=== PATIENT | male | born 1950 | race African-American/Black ===

== ENCOUNTER 2016-10-31 14:46 | Inpatient (IN) | payer BC ==
--- NOTE | ~2016-10-31 | EKG ---
PATIENT: APRIL GILBERT UNIT #: [id number] Ventricular Rate: 84 BPM Atrial Rate: 84 BPM P-R Interval: 150 ms QRS Duration: 74 ms Q-T Interval: 366 ms QTC Calculation(Bezet): 432 ms P [place]: 85 degrees Calculated R [place]: 43 degrees Calculated T [place]: 78 degrees Diagnosis Line: Normal sinus rhythm Diagnosis Line: Normal ECG Diagnosis Line: When compared with ECG of 28-DEC-2015 23:22, Diagnosis Line: Criteria for Septal infarct are no longer Present Diagnosis Line: Confirmed by SARAHI MOORE MD ([id number]) on 11/05/2016 Diagnosis Line: 10:25:04 PM INTERPRETING MD: OSCAR WONG
--- NOTE | ~2016-10-31 | CR72 ---
[facility] A Service of [facility] & [facility] RADIOLOGY TEXT RESULTS PATIENT: APRIL GILBERT LOCATION: [facility] 571-01 : 51 UNIT #: [id number] AGE: [address]: Jorge Douglas MD SEX: M ORDER DR: [id number] [facility] [address] [facility]. [place], [place] [address] [id number] I MR#: [id number] Acc #: [id number] NAME: APRIL GILBERT : 1950 SEX: M STUDY DATE/TIME: 11/03/2016 5:03 UNIT: [facility] ROOM: [employer] STUDY DESCRIPTION: CR Chest Single View Portable Attending Physician: Stephany Douglas M.D. Ordering Physician: Stephany Douglas M.D. Primary Care Physician: Rachelle Reddy R.N. MEDICAL IMAGING REPORT This report is preliminary unless electronic signature is present EXAM Portable chest, 11/03/2016 HISTORY Shortness of air and chest pain for 3 days. COMPARISON Chest, 10/31/2016 FINDINGS Frontal chest demonstrates clear lungs. No pleural effusion or pneumothorax. Emphysema. Heart size and mediastinum normal. Pulmonary vasculature unremarkable. IMPRESSION Emphysema. No other acute chest findings. Dictated by... Christian Arcos M.D. THIS IS AN ELECTRONICALLY VERIFIED REPORT Christian Arcos M.D. at 11/04/2016 4:40 PM Ilsa TD: 11/03/2016 17:15 JOB #: [id number] MEDICAL IMAGING REPORT Page 1 of 1 COPY
--- NOTE | ~2016-10-31 | DS ---
Unit #: [id number] #: [id number] Patient: APRIL GILBERT [id number] [address] [address] [id number] I MR#: [id number] NAME: APRIL GILBERT. ROOM: 571 Age: 66 Sex: M Admission Date: 10/31/2016 : 1950 Discharge Date: 11/11/2016 Attending Physician: Stephany Douglas M.D. Primary Care Physician: Rachelle Reddy DISCHARGE SUMMARY DISCHARGE DIAGNOSES 1. Chronic obstructive pulmonary disease exacerbation. 2. Shortness of breath. 3. Atrial fibrillation, on chronic anticoagulation. 4. Acute on chronic respiratory failure. 65-year-old gentleman well known to our practice admitted last year with acute respiratory failure, COPD exacerbation, presented with two days of worsening shortness of breath. The patient denied fevers, chills, nausea, vomiting, nausea, vomiting, diarrhea, sweating, chest pain, discomfort. Patient had nonproductive cough, no hemoptysis. He is having significant anxiety, worsening shortness of breath, history of very similar symptoms and having some chest pain. Admitted to the hospital for what appeared to be COPD exacerbation. The patient had a workup so sputum cultures are negative. Blood cultures are negative. The patient became very lethargic after being given Xanax for anxiety. Therefore, he is being discharged on home oxygen as well as a Trilogy which is a noninvasive ventilator designed to help him get adequate oxygen during sleep. DISCHARGE MEDICATIONS Include: 1. Warfarin 5 mg daily. 2. Amlodipine 5 mg daily. 3. Metoprolol 12.5 mg daily. 4. Lasix 20 mg daily. 5. Iron sulfate 325 mg t.i.d. 6. Multivitamins, one tablet daily. 7. Aspirin 81 mg daily. 8. Potassium chloride 10 mEq daily. 9. Folic acid 1 mg daily. 10. B12 50 mg daily. 11. Warfarin 5 mg Friday, Friday, Friday, 2.5 mg Friday, , Friday, Friday. 12. Prednisone 40 mg x1 day, 30 mg x1 day, 20 mg x2 days, and 10 mg x2 days. 13. Spiriva Respimat, one puff twice a day. 14. Cordarone 100 mg daily. 15. Flomax 0.4 mg daily. 16. Symbicort two puffs twice a day. 17. Ventolin puffer, two puffs every four hours as needed for shortness of breath. DIET The patient should continue a low salt diet. Unit #: [id number] #: [id number] Patient: APRIL GILBERT ACTIVITY Patient should wear BiPAP at night and ambulate as much as tolerated. Dictated by... Juanita Jones TD: 11/12/2016 11:27 JOB #: [id number] DISCHARGE SUMMARY Page 1 of 1 X Jorge Douglas MD X DISCHARGE SUMMARY
--- NOTE | ~2016-10-31 | CR71 ---
[facility]. [facility] A Service of [facility] & [facility] RADIOLOGY TEXT RESULTS PATIENT: APRIL GILBERT LOCATION: [facility] 571-01 : 51 UNIT #: [id number] AGE: [address]: Jorge Douglas MD SEX: M ORDER DR: [id number] [facility] [address] [place], [place] [address] [id number] I MR#: [id number] Acc #: [id number] NAME: APRIL GILBERT : 1950 SEX: M STUDY DATE/TIME: 11/06/2016 4:48 UNIT: [facility] ROOM: [facility] STUDY DESCRIPTION: CR Chest Single View Attending Physician: Jorge Douglas Ordering Physician: Jroge Douglas Primary Care Physician: Rachelle Reddy MEDICAL IMAGING REPORT This report is preliminary unless electronic signature is present EXAM Portable chest INDICATIONS Shortness of air today. PROCEDURE Frontal view chest. COMPARISON 11/04/2016 FINDINGS Heart size unchanged. No dense consolidation. No pleural fluid or pneumothorax. IMPRESSION No change. No new dense consolidation. Dictated by... Oliver Bautista M.D. THIS IS AN ELECTRONICALLY VERIFIED REPORT Oliver Bautista M.D. at 11/06/2016 10:24 PM STEWART/erin TD: 11/06/2016 06:25 JOB #: [id number] MEDICAL IMAGING REPORT Page 1 of 1 COPY
--- NOTE | ~2016-10-31 | CR72 ---
[facility]. [facility] A Service of [facility] & [facility] RADIOLOGY TEXT RESULTS PATIENT: APRIL GILBERT LOCATION: [facility] 571-01 : 51 UNIT #: [id number] AGE: [address]: Jorge Douglas MD SEX: M ORDER DR: [id number] [facility] [address] [place], [place] [address] [id number] I MR#: [id number] Acc #: [id number] NAME: APRIL GILBERT : 1950 SEX: M STUDY DATE/TIME: 11/04/2016 4:44 UNIT: [facility] ROOM: [facility] STUDY DESCRIPTION: CR Chest Single View Portable Attending Physician: Jorge Douglas Ordering Physician: Jorge Douglas Primary Care Physician: Rachelle Reddy MEDICAL IMAGING REPORT This report is preliminary unless electronic signature is present EXAM Portable chest INDICATIONS Chest pain, shortness of air today. PROCEDURE frontal view chest COMPARISON 11/03/2016 FINDINGS Heart size stable. No dense consolidation. No pleural fluid. No pneumothorax. IMPRESSION Stable chest. Dictated by... Oliver Bautista M.D. THIS IS AN ELECTRONICALLY VERIFIED REPORT Oliver Bautista M.D. at 11/04/2016 9:56 PM STEWART/erin TD: 11/04/2016 08:49 JOB #: [id number] MEDICAL IMAGING REPORT Page 1 of 1 COPY
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
--- NOTE | ~2016-10-31 | CR63 ---
[facility] A Service of [facility] RADIOLOGY TEXT RESULTS PATIENT: APRIL GILBERT LOCATION: [facility] : 51 UNIT #: [id number] AGE: [address]: Alexis Rivera MD SEX: M ORDER DR: [id number] [facility] [address] [facility] [address] [place], [place] [address] [id number] MR#: [id number] Acc #: [id number] NAME: APRIL GILBERT : 1950 SEX: M STUDY DATE/TIME: 10/31/2016 14:07 UNIT: [facility] ROOM: STUDY DESCRIPTION: CR Chest 2 View Attending Physician: Alexis Rivera M.D. Ordering Physician: Alexis Rivera M.D. Primary Care Physician: Rachelle Reddy MEDICAL IMAGING REPORT This report is preliminary unless electronic signature is present EXAM Chest x-ray 10/31 INDICATIONS Shortness of air today. History of prostate cancer and COPD. History of hypertension. TECHNIQUE/COMPARISON PA and lateral views of the chest are compared with 12/29/2015. FINDINGS Cardiac mediastinal contours are normal. The lungs remain emphysematous but clear. No pneumothorax. IMPRESSION Emphysema. No active disease. Dictated by... Vaughn Funes Jr., M.D. THIS IS AN ELECTRONICALLY VERIFIED REPORT Vaughn Funes Jr., M.D. at 10/31/2016 4:31 PM RLK/fermin TD: 10/31/2016 15:36 JOB #: [id number] MEDICAL IMAGING REPORT Page 1 of 1 COPY
[2016-10-31 13:40] LABS: ARTERIAL BLD GAS O2 SATURATION 74.3 % (90.0-100.0); ARTERIAL BLOOD GAS CARBOXY HB 4.6 %sat (0.0-9.0); ARTERIAL BLOOD GAS HCO3 42.3 mmol/L; ARTERIAL BLOOD GAS MET HB 0.7 %sat (0.0-2.0); ARTERIAL BLOOD GAS pH 7.367 (7.350-7.450)
[2016-10-31 13:44] LABS: ARTERIAL BLOOD GAS ALLEN TEST NORMAL; ARTERIAL BLOOD GAS PCO2 73.8 mmHg (35.0-45.0); ARTERIAL BLOOD GAS PO2 41.4 mmHg (80.0-100); ARTERIAL DRAW? YES
[2016-10-31 13:45] LABS: ARTERIAL BLOOD GAS ART SITE RIGHT RADIAL; ARTERIAL BLOOD GAS DELIVERY NASAL CANNULA
[2016-10-31 13:51] LABS: POC - CKMB 8.2 ng/mL (0.0-7.9); POC - TROPONIN <0.05 ng/mL (<=0.05)
[2016-10-31 13:54] LABS: BASOPHIL% 0.5 % (0-2.5); EOSINOPHIL% 0.3 % (0.0-7.0); HEMATOCRIT 40.4 % (38.0-50.0); HEMOGLOBIN 13.5 gm/dL (13.0-16.0); LYMPHOCYTE# 0.7 X10e3 (1.0-3.5); LYMPHOCYTE% 7.1 % (17.0-45.0); MEAN CELL VOLUME 89.4 FL (83-96); MEAN CORPUSCULAR HEMOGLOBIN 29.8 PG (28-34); MEAN CORPUSCULAR HGB CONC 33.4 g/dL (30-36); MEAN PLATELET VOLUME 9.4 FL (6.5-11.5); MONOCYTE# 1.6 X10e3 (0-1.0); MONOCYTE% 17.8 % (3.0-12.0); NEUTROPHIL# 6.8 X10e3 (1.5-7.1); NEUTROPHIL% 74.3 % (40-75); PLATELET COUNT 221 X10e3 (140-420); RED BLOOD COUNT 4.52 X10e (3.90-5.60); RED CELL DISTRIBUTION WIDTH 13.9 % (11.0-15.5); WHITE BLOOD COUNT 9.2 X10e3 (4.0-10.5)
[2016-10-31 13:59] LABS: DIFF IND NO
[2016-10-31 14:16] LABS: ALBUMIN SERUM 3.9 g/dL (3.5-5.0); BILIRUBIN,TOTAL 0.8 mg/dL (0.2-2.0); CREATININE SERUM 0.7 mg/dL (0.6-1.4); GLOM FILT RATE Estimated 115.6 mL/min (>60); POTASSIUM 3.9 mmol/L (3.5-5.1); PROTEIN TOTAL SERUM 7.5 g/dL (6.0-8.3)
[~2016-10-31 14:46] MED LIST: ALBUTEROL17 GM INH; ALBUTEROL2.5 MG/0.5 IH; ALBUTEROL2.5 MG/3 M NEB; AMIODARONE PO; AMLODIPINE BESYL5 MG PO; ASPIRIN81 M1 PO; ASPIRIN81 M2 PO; CATAPRES0.1 MG PO; CENTRUM SILVER PO; CHEWABLE ASPIRI81 MG PO; CORDARONE200 M1 PO; COUMADIN2.5 MG PO; COUMADIN5 MG PO; DOXYCYCLINE HY100 M1 PO; DOXYCYCLINE HY100 M3 PO; DULERA 100 MCG/13 GM INH; EXFORGE HCT 101 EAC2 PO; FERROUS GL325 ( 37.5 PO; FLOMAX0.4 M1 PO; FOLIC ACID1 MG PO; FUROSEMIDE40 MG PO; KCL PO; MEDROL DOSEPAK4 MG PO; METOLAZONE5 MG PO; METOPROLOL SUCC25 MG PO; MUCINEX DM TABL1 BOX; NORVASC PO; NYSTATIN5 ML PO; OXYGEN; POTASSIUM CHLO10 MEQ PO; PREDNISONE PO; SPIRIVA RESPIMAT4 G1 INH; SPIRIVA18 MCG INH; SYMBICORT INH; VIT B-12 PO; ZITHROMAX; ZOCOR20 MG PO; [UNRECOGNIZED DRUG - OTHER] PO
[2016-10-31 15:07] LABS: ARTERIAL BLD GAS O2 SATURATION 94.7 % (90.0-100.0); ARTERIAL BLOOD GAS CARBOXY HB 3.5 %sat (0.0-9.0); ARTERIAL BLOOD GAS HCO3 40.4 mmol/L; ARTERIAL BLOOD GAS MET HB 1.4 %sat (0.0-2.0)
[2016-10-31 15:09] LABS: ARTERIAL BLOOD GAS PCO2 78.5 mmHg (35.0-45.0)
[2016-10-31 15:10] LABS: ARTERIAL BLOOD GAS ALLEN TEST NORMAL; ARTERIAL BLOOD GAS ART SITE LEFT RADIAL; ARTERIAL BLOOD GAS DELIVERY BIPAP; ARTERIAL DRAW? YES
[2016-10-31 18:12] LABS: INR 2.6; PROTHROMBIN TIME (PATIENT) 28.1 SECONDS (9.6-11.5)
[2016-11-01 03:56] LABS: ARTERIAL BLD GAS O2 SATURATION 97.3 % (90.0-100.0); ARTERIAL BLOOD GAS CARBOXY HB 0.5 %sat (0.0-9.0); ARTERIAL BLOOD GAS HCO3 39.5 mmol/L; ARTERIAL BLOOD GAS MET HB 0.9 %sat (0.0-2.0); ARTERIAL BLOOD GAS pH 7.311 (7.350-7.450)
[2016-11-01 04:08] LABS: ARTERIAL BLOOD GAS ALLEN TEST Y; ARTERIAL BLOOD GAS ART SITE RIGHT RADIAL; ARTERIAL BLOOD GAS DELIVERY NASAL CANNULA; ARTERIAL BLOOD GAS PCO2 78.4 mmHg (35.0-45.0); ARTERIAL DRAW? YES
[2016-11-01 06:19] LABS: INR 2.7
[2016-11-02 11:04] LABS: HEMATOCRIT 38.7 % (38.0-50.0); HEMOGLOBIN 12.4 gm/dL (13.0-16.0); MEAN CELL VOLUME 91.1 FL (83-96); MEAN CORPUSCULAR HEMOGLOBIN 29.2 PG (28-34); MEAN PLATELET VOLUME 9.7 FL (6.5-11.5); RED BLOOD COUNT 4.25 X10e (3.90-5.60)
[2016-11-02 11:30] LABS: BUN/CREATININE RATIO 16.25; CALCIUM SERUM 9.2 mg/dL (8.4-10.2); CREATININE SERUM 0.8 mg/dL (0.6-1.4); GLOM FILT RATE Estimated 109.5 mL/min (>60); MAGNESIUM 1.9 mg/dL (1.6-3.0); PHOSPHOROUS 2.9 mg/dL (2.5-4.6); POTASSIUM 5.1 mmol/L (3.5-5.1)
[2016-11-03 07:59] LABS: HEMATOCRIT 39.8 % (38.0-50.0); HEMOGLOBIN 12.5 gm/dL (13.0-16.0); MEAN CELL VOLUME 91.7 FL (83-96); MEAN CORPUSCULAR HEMOGLOBIN 28.8 PG (28-34); MEAN CORPUSCULAR HGB CONC 31.4 g/dL (30-36); MEAN PLATELET VOLUME 9.4 FL (6.5-11.5); RED BLOOD COUNT 4.34 X10e (3.90-5.60); RED CELL DISTRIBUTION WIDTH 13.9 % (11.0-15.5); WHITE BLOOD COUNT 16.7 X10e3 (4.0-10.5)
[2016-11-03 08:11] LABS: INR 2.2; PROTHROMBIN TIME (PATIENT) 24.1 SECONDS (9.6-11.5)
[2016-11-03 08:21] LABS: BUN/CREATININE RATIO 23.75; CALCIUM SERUM 9.3 mg/dL (8.4-10.2); CREATININE SERUM 0.8 mg/dL (0.6-1.4); GLOM FILT RATE Estimated 109.5 mL/min (>60)
[2016-11-03 08:25] LABS: POTASSIUM 5.8 mmol/L (3.5-5.1)
[2016-11-03 08:59] LABS: ARTERIAL BLD GAS O2 SATURATION 98.1 % (90.0-100.0); ARTERIAL BLOOD GAS HCO3 47.6 mmol/L; ARTERIAL BLOOD GAS pH 7.303 (7.350-7.450)
[2016-11-03 09:03] LABS: ARTERIAL BLOOD GAS PCO2 96.1 mmHg (35.0-45.0)
[2016-11-03 09:04] LABS: ARTERIAL BLOOD GAS ART SITE RIGHT RADIAL; ARTERIAL BLOOD GAS DELIVERY NASAL CANNULA; ARTERIAL DRAW? YES
[2016-11-03 13:14] LABS: ARTERIAL BLD GAS O2 SATURATION 94.6 % (90.0-100.0); ARTERIAL BLOOD GAS CARBOXY HB 0.5 %sat (0.0-9.0); ARTERIAL BLOOD GAS HCO3 46.8 mmol/L
[2016-11-03 13:17] LABS: ARTERIAL BLOOD GAS ALLEN TEST NORMAL; ARTERIAL BLOOD GAS ART SITE RIGHT RADIAL; ARTERIAL BLOOD GAS DELIVERY BIPAP; ARTERIAL BLOOD GAS PCO2 82.9 mmHg (35.0-45.0); ARTERIAL BLOOD GAS PO2 75.3 mmHg (80.0-100); ARTERIAL DRAW? YES
[2016-11-03 13:18] LABS: ARTERIAL BLOOD GAS VENT MODE AVAPS 500
[2016-11-04 04:04] LABS: ARTERIAL BLD GAS O2 SATURATION 91.8 % (90.0-100.0); ARTERIAL BLOOD GAS CARBOXY HB 0.6 %sat (0.0-9.0); ARTERIAL BLOOD GAS HCO3 51.2 mmol/L; ARTERIAL BLOOD GAS MET HB 1.1 %sat (0.0-2.0); ARTERIAL BLOOD GAS pH 7.522 (7.350-7.450)
[2016-11-04 04:37] LABS: ARTERIAL BLOOD GAS ALLEN TEST NORMAL; ARTERIAL BLOOD GAS ART SITE RIGHT RADIAL; ARTERIAL BLOOD GAS PCO2 62.5 mmHg (35.0-45.0); ARTERIAL BLOOD GAS PO2 64.2 mmHg (80.0-100); ARTERIAL DRAW? YES
[2016-11-04 04:38] LABS: ARTERIAL BLOOD GAS DELIVERY BIPAP; ARTERIAL BLOOD GAS VENT MODE AVAPS
[2016-11-04 05:29] LABS: HEMATOCRIT 38.7 % (38.0-50.0); HEMOGLOBIN 12.3 gm/dL (13.0-16.0); MEAN CELL VOLUME 90.5 FL (83-96); MEAN CORPUSCULAR HEMOGLOBIN 28.8 PG (28-34); MEAN CORPUSCULAR HGB CONC 31.8 g/dL (30-36); MEAN PLATELET VOLUME 9.2 FL (6.5-11.5); RED BLOOD COUNT 4.28 X10e (3.90-5.60); RED CELL DISTRIBUTION WIDTH 14.2 % (11.0-15.5); WHITE BLOOD COUNT 14.1 X10e3 (4.0-10.5)
[2016-11-04 05:41] LABS: INR 2.5; PROTHROMBIN TIME (PATIENT) 27.4 SECONDS (9.6-11.5)
[2016-11-04 06:44] LABS: ALBUMIN SERUM 3.2 g/dL (3.5-5.0); BILIRUBIN,TOTAL 0.5 mg/dL (0.2-2.0); BUN/CREATININE RATIO 23.75; CALCIUM SERUM 8.7 mg/dL (8.4-10.2); CREATININE SERUM 0.8 mg/dL (0.6-1.4); GLOM FILT RATE Estimated 109.5 mL/min (>60); POTASSIUM 4.5 mmol/L (3.5-5.1)
[2016-11-05 03:50] LABS: ARTERIAL BLD GAS O2 SATURATION 95.6 % (90.0-100.0); ARTERIAL BLOOD GAS CARBOXY HB 0.2 %sat (0.0-9.0); ARTERIAL BLOOD GAS HCO3 51.7 mmol/L; ARTERIAL BLOOD GAS MET HB 0.8 %sat (0.0-2.0); ARTERIAL BLOOD GAS PO2 81.7 mmHg (80.0-100); ARTERIAL BLOOD GAS pH 7.471 (7.350-7.450)
[2016-11-05 03:55] LABS: ARTERIAL BLOOD GAS ALLEN TEST NORMAL; ARTERIAL BLOOD GAS ART SITE RIGHT RADIAL; ARTERIAL BLOOD GAS DELIVERY BIPAP; ARTERIAL BLOOD GAS PCO2 70.9 mmHg (35.0-45.0); ARTERIAL BLOOD GAS VENT MODE AVAPS; ARTERIAL DRAW? YES
[2016-11-05 06:59] LABS: INR 2.6; PROTHROMBIN TIME (PATIENT) 28.4 SECONDS (9.6-11.5)
[2016-11-05 07:32] LABS: BUN/CREATININE RATIO 28.33; CALCIUM SERUM 8.4 mg/dL (8.4-10.2); CREATININE SERUM 0.6 mg/dL (0.6-1.4); GLOM FILT RATE Estimated 123.2 mL/min (>60); MAGNESIUM 2.3 mg/dL (1.6-3.0); PHOSPHOROUS 3.2 mg/dL (2.5-4.6); POTASSIUM 4.2 mmol/L (3.5-5.1)
[2016-11-05 08:11] LABS: ARTERIAL BLD GAS O2 SATURATION 96.8 % (90.0-100.0); ARTERIAL BLOOD GAS CARBOXY HB 0.1 %sat (0.0-9.0); ARTERIAL BLOOD GAS HCO3 50.1 mmol/L; ARTERIAL BLOOD GAS MET HB 0.9 %sat (0.0-2.0); ARTERIAL BLOOD GAS pH 7.411 (7.350-7.450)
[2016-11-05 08:13] LABS: ARTERIAL BLOOD GAS PCO2 78.8 mmHg (35.0-45.0); ARTERIAL DRAW? YES
[2016-11-05 08:14] LABS: ARTERIAL BLOOD GAS ALLEN TEST NORMAL; ARTERIAL BLOOD GAS ART SITE RIGHT RADIAL; ARTERIAL BLOOD GAS DELIVERY NASAL CANNULA
[2016-11-06 07:01] LABS: HEMATOCRIT 41.7 % (38.0-50.0); HEMOGLOBIN 13.4 gm/dL (13.0-16.0); MEAN CELL VOLUME 90.4 FL (83-96); MEAN CORPUSCULAR HGB CONC 32.1 g/dL (30-36); MEAN PLATELET VOLUME 8.9 FL (6.5-11.5); RED BLOOD COUNT 4.61 X10e (3.90-5.60); RED CELL DISTRIBUTION WIDTH 13.5 % (11.0-15.5); WHITE BLOOD COUNT 17.7 X10e3 (4.0-10.5)
[2016-11-06 07:09] LABS: BUN/CREATININE RATIO 22.5; CALCIUM SERUM 8.8 mg/dL (8.4-10.2); CREATININE SERUM 0.8 mg/dL (0.6-1.4); GLOM FILT RATE Estimated 109.5 mL/min (>60); POTASSIUM 4.4 mmol/L (3.5-5.1)
[2016-11-08 08:04] LABS: HEMATOCRIT 44.4 % (38.0-50.0); HEMOGLOBIN 13.9 gm/dL (13.0-16.0); MEAN CELL VOLUME 91.7 FL (83-96); MEAN CORPUSCULAR HEMOGLOBIN 28.6 PG (28-34); MEAN CORPUSCULAR HGB CONC 31.2 g/dL (30-36); MEAN PLATELET VOLUME 9.2 FL (6.5-11.5); RED BLOOD COUNT 4.84 X10e (3.90-5.60); RED CELL DISTRIBUTION WIDTH 13.7 % (11.0-15.5); WHITE BLOOD COUNT 22.1 X10e3 (4.0-10.5)
[2016-11-08 08:07] LABS: INR 3.8; PROTHROMBIN TIME (PATIENT) 41.5 SECONDS (9.6-11.5)
[2016-11-08 08:33] LABS: BUN/CREATININE RATIO 22.5; CALCIUM SERUM 8.4 mg/dL (8.4-10.2); CREATININE SERUM 0.8 mg/dL (0.6-1.4); GLOM FILT RATE Estimated 108.7 mL/min (>60); MAGNESIUM 2.3 mg/dL (1.6-3.0); PHOSPHOROUS 3.3 mg/dL (2.5-4.6); POTASSIUM 4.9 mmol/L (3.5-5.1)
[2016-11-09 06:43] LABS: INR 2.3; PROTHROMBIN TIME (PATIENT) 25.1 SECONDS (9.6-11.5)
[2016-11-10 05:51] LABS: INR 1.4; PROTHROMBIN TIME (PATIENT) 14.7 SECONDS (9.6-11.5)
[2016-11-11 05:32] LABS: INR 1.1; PROTHROMBIN TIME (PATIENT) 12.1 SECONDS (9.6-11.5)
[2016-11-11] MEDS ORDERED: JANTOVEN7.5 MG PO (17:53)
[2016-11-11] MEDS ORDERED: PREDNISONE PO (17:54)
[2016-11-11] MEDS ORDERED: ALBUTEROL2.5 MG/3 M NEB (18:13)
== END 2016-11-11 21:42 | disposition home or self-care (01) | DRG 189 ==
LOC: CED 14:46 → CEDOF 16:55 → C5C 22:26
PROVIDERS: Emergency Medicine; Internal Medicine Pulmonary Disease
PROC: 5A09357 Assistance with Respiratory Ventilation, Less than 24 Consecutive Hours, Continuous Positive Airway Pressure (ICD-10-PCS; principal; 2016-11-04)
DX: J96.22 Acute and chronic respiratory failure with hypercapnia (principal); J44.1 Chronic obstructive pulmonary disease with (acute) exacerbation; Z99.81 Dependence on supplemental oxygen; J96.21 Acute and chronic respiratory failure with hypoxia; I48.91 Unspecified atrial fibrillation; F41.9 Anxiety disorder, unspecified; R53.83 Other fatigue; I10 Essential (primary) hypertension; T42.4X5A Adverse effect of benzodiazepines, initial encounter; Y92.230 Patient room in hospital as the place of occurrence of the external cause; Z79.01 Long term (current) use of anticoagulants; Z79.51 Long term (current) use of inhaled steroids; Z79.82 Long term (current) use of aspirin; Z79.899 Other long term (current) drug therapy; Z87.891 Personal history of nicotine dependence
CPT/HCPCS: 36600; 71010; 71020; 80048; 80053; 82553; 82803; 83735; 84100; 84132; 84484; 85025; 85027; 85610; 87040; 87070; 87205; 87633; 93005; 94640; 94660; 94664; 94760; 94761; 94762; 96374; 97162; 99291; J1650; J1940; J2060; J2920; J2930

== ENCOUNTER 2017-01-28 20:33 | Inpatient (IN) | payer MEDICARE ==
[~2017-01-28] VITALS: Ht 167.6 cm; Wt 77.5 kg
--- NOTE | ~2017-01-28 | EKG ---
PATIENT: APRIL GILBERT UNIT #: [id number] Ventricular Rate: 126 BPM Atrial Rate: 252 BPM QRS Duration: 64 ms Q-T Interval: 278 ms QTC Calculation(Bezet): 402 ms P [place]: 84 degrees Calculated R [place]: 72 degrees Calculated T [place]: 77 degrees Diagnosis Line: Diagnosis Line: Normal sinus rhythm Diagnosis Line: Normal ECG Diagnosis Line: Diagnosis Line: Confirmed by SARAHI MOORE MD ([id number]) on 02/11/2017 Diagnosis Line: 6:20:07 PM INTERPRETING MD: OSCAR WONG
--- NOTE | ~2017-01-28 | EKG ---
PATIENT: APRIL GILBERT UNIT #: [id number] Ventricular Rate: 119 BPM Atrial Rate: 119 BPM P-R Interval: 142 ms QRS Duration: 76 ms Q-T Interval: 306 ms QTC Calculation(Bezet): 430 ms P [place]: 90 degrees Calculated R [place]: 77 degrees Calculated T [place]: 81 degrees Diagnosis Line: Sinus tachycardia Diagnosis Line: Otherwise normal ECG Diagnosis Line: When compared with ECG of 31-OCT-2016 13:38, Diagnosis Line: No significant change was found Diagnosis Line: Confirmed by JEAN-PIERRE DURAN MD ([id number]) on Diagnosis Line: 01/29/2017 11:04:16 AM INTERPRETING CLAUDIO MONDRAGON
--- NOTE | ~2017-01-28 | DS ---
Unit #: [id number] #: [id number] Patient: APRIL GILBERT [id number] [address] [place], [place] [address] [id number] I MR#: [id number] NAME: APRIL GILBERT. ROOM: 568 Age: 66 Sex: M Admission Date: 01/28/2017 : 1950 Discharge Date: 02/20/2017 Attending Physician: Stephany Douglas M.D. Primary Care Physician: Rachelle Reddy R.N. DISCHARGE SUMMARY DISCHARGE DIAGNOSES 1. Abdominal pain. 2. Abdominal distention. 3. Chronic obstructive pulmonary disease exacerbation. 4. Severe emphysema. 5. Respiratory failure. 6. Leukocytosis secondary to steroids. 7. Hypertension. 8. Supratherapeutic INR. PROCEDURE Bronchoscopy, Dr. Dominguez. CONSULTS 1. Dr. Walker for general surgery. 2. Dr. Chen for infectious disease. 3. Dr. Mcgowan for tachycardia. HISTORY This is a pleasant 66-year-old gentleman with a past medical history of severe COPD, hypercapnia, and respiratory failure several times in the past. The last time was approximately six months ago. Patient states he has had several days of shortness of breath. No clear sick contacts, however, stated that when the weather started to change, patient started having severe shortness of air. No fever, no chills, no nausea, vomiting, or diarrhea. Sweats, increased work of breathing. No visual changes or stiff neck. Severe anorexia. Patient has had pretty significant cough. There was also a significant amount of wheezing. HOSPITAL COURSE The patient's shortness of breath progressed and required intubation for approximately seven days on the ventilator. Patient was extubated approximately 10 days afterwards. He required bronchoscopy which showed mucus plugging. The patient had persistent difficulty coming off the ventilator due to severe weakness and debilitation. Hypertension. Patient's blood pressure remained stable. However, Cardiology was consulted for significant tachycardia. Beta blockers and JAGDISH inhibitors were started and that improved. Patient had some abdominal distention and stool retention, however, this resolved spontaneously with a little bit of bowel rest. Anorexia. Patient continues to have very significant anorexia. Unit #: [id number] #: [id number] Patient: APRIL GILBERT Therefore, megestrol will be sent to him on discharge. DISCHARGE MEDICATIONS 1. Proventil 2 puffs inhaled q.4 hours as needed for shortness of breath. 2. Albuterol nebulizer 3 mL every 4 hours. 3. Budesonide 0.5 mg nebulizer twice daily. 4. Formoterol 20 mcg nebulizer twice daily. 5. Prednisone 30 mg x1 day, 20 mg x2 days, 10 mg x2 days, and 5 mg x2 days. 6. Flomax 0.4 mg daily. 7. Amiodarone 200 mg daily. 8. Tiotropium Respimat 2 puffs inhaled daily. 9. Acetaminophen 650 mg for fevers. 10. Lovenox 80 mg subcutaneous daily x1 week or until Coumadin is therapeutic. 11. Coumadin 5 mg daily. 12. Xanax 0.25 mg twice daily. 13. Dulera 200 mcg inhaler 2 puffs twice daily. 14. Amlodipine 5 mg daily. 15. Metoprolol 12.5 mg daily. 16. Milk of Magnesia 15 mL daily as needed for indigestion. 17. Bisacodyl 10 mg [place] daily p.r.n. constipation. 18. Lopressor 12.5 mg every 12 hours. 19. Humibid LA 600 mg twice daily. 20. Low-dose sliding scale every 6 hours. 21. Ferrous gluconate 325 mg p.o. t.i.d. 22. Finasteride 5 mg p.o. every morning. 23. Multivitamins daily. 24. Aspirin 81 mg daily. 25. Acetaminophen with codeine tablet No. 3 at 1 tablet q.8 hours as needed. 26. Folic acid 1 mg daily. 27. B12 at 50 mg daily. 28. Megestrol 400 mg p.o. q.p.m. for 7 days. FOLLOWUP Patient is to follow up with Dr. Dominguez in approximately three weeks. He is to follow up with [facility] as an outpatient in approximately two weeks for malnutrition. Dictated by... Juanita Jones TD: 02/20/2017 20:23 JOB #: [id number] DISCHARGE SUMMARY Page 1 of 1 X Jorge Douglas MD X DISCHARGE SUMMARY
--- NOTE | ~2017-01-28 | CT57 ---
[facility] A Service of [facility] & [facility] RADIOLOGY TEXT RESULTS PATIENT: APRIL GILBERT LOCATION: [address] : [birth year] UNIT #: [id number] AGE: [address]: Jorge Douglas MD SEX: M ORDER DR: [id number] [facility] [address] [facility]. [place], [place] [address] [id number] I MR#: [id number] Acc #: [id number] NAME: APRIL GILBERT : 1950 SEX: M STUDY DATE/TIME: 02/01/2017 11:48 UNIT: [facility] ROOM: [facility] STUDY DESCRIPTION: CT Chest Wo Cont Attending Physician: Stephany Douglas M.D. Ordering Physician: Vernon Dominguez M.D. Primary Care Physician: Rachelle Reddy Aprn MEDICAL IMAGING REPORT This report is preliminary unless electronic signature is present EXAM CT chest without contrast. HISTORY Dyspnea for [address] exam was performed with one or more of the following radiation dose reduction techniques: automatic exposure control, adjustment of mA and/or kV according to patient size, and iterative reconstruction. FINDINGS CT chest without contrast demonstrates a 12 mm x 9 mm pulmonary nodule in the inferior right upper lobe, abutting the superior margin of the minor fissure. This is new compared to 09/27/2015. Consider further evaluation with PET/CT. Moderate bilateral emphysema, greater in the bilateral upper lobes. Moderate peripheral interstitial prominence in the mid and lower lungs, greater than on 09/27/2015, could be secondary interstitial edema, pneumonitis or scarring. There is also mild atelectasis in the posterior lower lobes bilaterally and in the posterior left upper lobe. Mild bronchiectasis in the bilateral lower lobes. There are two additional patchy nodular densities in the lateral left lower lobe measuring 7 mm x 8 mm and 9 mm x 9 mm. These are also new since the prior CT and are indeterminate. These could also be characterized on PET/CT. IMPRESSION 1. There is a new lobulated pulmonary nodule in the inferior right upper lobe abutting the superior margin of the minor fissure measuring 12 mm x 9 mm. There are also 2 additional new pulmonary nodules in the lateral left lower lobe measuring 7 mm x 8 mm and 9 mm x 9 mm. Considerations include malignancy versus infectious or inflammatory nodules. Consider further evaluation with PET/CT. Alternatively, 3-month followup chest CT is a consideration. [facility] A Service of [facility] & [facility] RADIOLOGY TEXT RESULTS PATIENT: APRIL GILBERT LOCATION: [place] [address]- : 52 UNIT #: [id number] AGE: [address]: Jorge Douglas MD SEX: M ORDER DR: 2. Mild atelectasis in the posterior lower lobes bilaterally and in the posterior left upper lobe. 3. Bilateral emphysema, greater in the upper lobes, similar to prior CT 09/27/2015. Dictated by... Sha Mendosa M.D. THIS IS AN ELECTRONICALLY VERIFIED REPORT Sha Mendosa M.D. at 02/02/2017 10:33 PM CHESTER/ayala TD: 02/01/2017 23:02 JOB #: [id number] MEDICAL IMAGING REPORT Page 1 of 1 COPY
--- NOTE | ~2017-01-28 | CR72 ---
[facility] A Service of [facility] & [facility] RADIOLOGY TEXT RESULTS PATIENT: APRIL GILBERT LOCATION: [address] : [birth year] UNIT #: [id number] AGE: [address]: Jorge Douglas MD SEX: M ORDER DR: [id number] [facility] [address] [place], [place] [address] [id number] I MR#: [id number] Acc #: [id number] NAME: APRIL GILBERT. : 1950 SEX: M STUDY DATE/TIME: 02/08/2017 5:43 UNIT: [facility] ROOM: [facility] STUDY DESCRIPTION: CR Chest Single View Portable Attending Physician: Stephany Douglas M.D. Ordering Physician: Vernon Dominguez M.D. Primary Care Physician: Rachelle Reddy R.N. MEDICAL IMAGING REPORT This report is preliminary unless electronic signature is present EXAM Chest x-ray, portable. HISTORY Tube placement, short of air, respiratory failure, on ventilator. COMMENT Single frontal view of the chest timed 5:43, on 02/08/2017 is reviewed. FINDINGS There is no change in left IJ catheter. Nasogastric tube passes at least into the stomach. Tip not on the film. Endotracheal tube is satisfactory. Cardiac silhouette size is within normal limits. No change in the thoracic aortic ectasia. No change in the increased parenchymal markings. I suspect some underlying chronic lung disease. There is probably some improvement in airspace disease at the left base. The left costophrenic angles excluded from the film. No change in the scarring or atelectasis of the right base. IMPRESSION 1. Probably subtle improvement in left base airspace disease. Left costophrenic angle is excluded from the film. Allowing for this, no pleural effusion or pneumothorax. Underlying chronic lung disease likely. Please correlate with history. Tubes and lines not appreciably changed. Tip of the nasogastric tube is not on the film. Dictated by... Mindi Hernandez M.D. THIS IS AN ELECTRONICALLY VERIFIED REPORT STS. [facility] A Service of [facility] & [facility] RADIOLOGY TEXT RESULTS PATIENT: APRIL GILBERT [facility] UNIT #: [id number] AGE: [address]: Jorge Douglas MD SEX: M ORDER DR: Mindi Hernandez M.D. at 02/09/2017 7:18 AM MP/ino TD: 02/08/2017 17:27 JOB #: [id number] MEDICAL IMAGING REPORT Page 1 of 1 COPY
--- NOTE | ~2017-01-28 | CR72 ---
[facility] A Service of [facility] RADIOLOGY TEXT RESULTS PATIENT: APRIL GILBERT LOCATION: [facility] 562- : 52 UNIT #: [id number] AGE: [address]: Jorge Douglas MD SEX: M ORDER DR: [id number] [facility] [address] [facility] [place], [place] [address] [id number] I MR#: [id number] Acc #: [id number] NAME: APRIL GILBERT : 1950 SEX: M STUDY DATE/TIME: 01/30/2017 6:34 UNIT: [facility] ROOM: [facility] STUDY DESCRIPTION: CR Chest Single View Portable Attending Physician: Stephany Douglas M.D. Ordering Physician: Stephany Douglas M.D. Primary Care Physician: Rachelle Reddy Aprn MEDICAL IMAGING REPORT This report is preliminary unless electronic signature is present EXAM Portable chest 01/30/2017 INDICATION Shortness of air. COPD. Symptoms for 2 days. History of prostate cancer. FINDINGS AP portable views of the chest are compared with 01/29/2017. Cardiac and mediastinal contours are within normal limits. There is emphysema. There is some very mild atelectasis or infiltrate in the bases. No pneumothorax. Dictated by... Vaughn Funes Jr., M.D. THIS IS AN ELECTRONICALLY VERIFIED REPORT Vaughn Funes Jr., M.D. at 01/30/2017 5:11 PM PREMA/espinoza TD: 01/30/2017 12:59 JOB #: [id number] MEDICAL IMAGING REPORT Page 1 of 1 COPY
--- NOTE | ~2017-01-28 | CR72 ---
[facility] A Service of [facility] & [facility] RADIOLOGY TEXT RESULTS PATIENT: APRIL GILBERT LOCATION: [place] [address] : 51 UNIT #: [id number] AGE: [address]: Jorge Douglas MD SEX: M ORDER DR: [id number] [facility] [address] [facility]. [place], [place] [address] [id number] I MR#: [id number] Acc #: [id number] NAME: APRIL GILBERT : 1950 SEX: M STUDY DATE/TIME: 02/06/2017 5:49 UNIT: [facility] ROOM: [facility] STUDY DESCRIPTION: CR Chest Single View Portable Attending Physician: Stephany Douglas M.D. Ordering Physician: Vernon Dominguez M.D. Primary Care Physician: Rachelle Reddy Aprn MEDICAL IMAGING REPORT This report is preliminary unless electronic signature is present EXAM Single view chest INDICATION Respiratory failure. COPD. FINDINGS Single portable AP view of the chest compared to 02/05/2017. Support lines and tubes remain in place. Heart and mediastinal contours are unchanged. There are some mild basilar airspace opacities and/or small effusions. No pneumothorax. IMPRESSION No significant change. Dictated by... Arvind Gutierrez M.D. THIS IS AN ELECTRONICALLY VERIFIED REPORT Arvind Gutierrez M.D. at 02/07/2017 12:49 AM CHASE/david TD: 02/06/2017 06:36 JOB #: [id number] MEDICAL IMAGING REPORT Page 1 of 1 COPY
--- NOTE | ~2017-01-28 | CR7 ---
[facility] A Service of [facility] RADIOLOGY TEXT RESULTS PATIENT: APRIL GILBERT LOCATION: [address] : 51 UNIT #: [id number] AGE: [address]: Jorge Douglas MD SEX: M ORDER DR: [id number] [place] [id number] [facility]. [place], [place] [address] [id number] I MR#: [id number] Acc #: [id number] NAME: APRIL GILBERT : 1950 SEX: M STUDY DATE/TIME: 02/07/2017 18:06 UNIT: [facility] ROOM: [facility] STUDY DESCRIPTION: CR Abdomen Single AP View Attending Physician: Stephany Douglas M.D. Ordering Physician: Vernon Dominguez M.D. Primary Care Physician: Rachelle Reddy Aprn MEDICAL IMAGING REPORT This report is preliminary unless electronic signature is present EXAM Frontal abdomen 02/07/2017 INDICATIONS 66-year-old male with abdominal distension and constipation that began 6 days ago. Ileus. Prostate cancer. Abdominal bloating. TECHNIQUE Frontal abdomen was performed and compared with 02/01/2017 FINDINGS There is an enteric tube present and the tip is at the expected location of the midbody stomach. Probable Ordoñez catheter temperature probe projects over the pelvis in this patient status post prior prostate surgery. Large volume of stool in the colon most characteristic of constipation. No mass effect or concerning calcifications. Vascular calcifications are present. Probable fibrosis and scarring in the lung bases left greater than right. IMPRESSION 1. Large volume of stool in the colon. No dilated air-filled loops to suggest bowel obstruction. 2. Enteric tube tip at the level of the midbody stomach. Dictated by... Alec Abel M.D. THIS IS AN ELECTRONICALLY VERIFIED REPORT Alec Abel M.D. at 02/10/2017 2:58 PM ANMOL/steve TD: 02/08/2017 05:36 [facility] A Service of [facility] & [facility] RADIOLOGY TEXT RESULTS PATIENT: APRIL GILBERT LOCATION: [address] : [birth year] UNIT #: [id number] AGE: [address]: Jorge Douglas MD SEX: M ORDER DR: JOB #: [id number] MEDICAL IMAGING REPORT Page 1 of 1 COPY
--- NOTE | ~2017-01-28 | OR ---
Unit #: [id number] #: [id number] Patient: APRIL RODRIGUEZ [id number] [place] [address] [facility]. [place], [place] [address] [id number] Cara MR#: [id number] NAME: APRIL RODRIGUEZ ROOM: [facility] Date of Procedure: 02/12/2017 Admission Date: 01/28/2017 Surgeon: Vernon Dominguez M.D. : 1950 Attending Physician: Stephany Douglas M.D. Primary Care Physician: Rachelle Reddy OPERATIVE REPORT PROCEDURE PERFORMED Bronchoscopy. INDICATION Hemoptysis and mucus plugging. PREOPERATIVE DIAGNOSES Hemoptysis and mucus plugging. INTRAOPERATIVE FINDINGS Very significant obstruction of endotracheal tube with hardened blood clot type material and bloody mucus plug in bronchus intermedius. POSTOPERATIVE DIAGNOSES Very significant obstruction of endotracheal tube with hardened blood clot type material and bloody mucus plug in bronchus intermedius. DESCRIPTION OF PROCEDURE Mr. Rodriguez was already intubated. The scope was placed through the endotracheal tube. The scope could not be advanced through the endotracheal tube. I thought this was because of the piedra crimping the tube, but I found detention down the tube a secretion, which was made of a probable blood clot, but it was quite hardened and adherent to the tube. I used a biopsy forceps to loosen this and eventually, I was able to get this out, but it took some effort. I then used the scope going up and down the endotracheal tube while somebody held it in order to clear out the distal part which was also noted to have some buildup. At the distal trachea, there was significant bloody sputum. There was a mucus plug in the bronchus intermedius that was washed and suctioned and after this was washed and suctioned, there was no active bleeding. The right upper lobe, right middle lobe, right lower lobe were all washed and suctioned and there was a little bit of blood, more in the right lower lobe and right middle lobe, and less so in the right upper lobe, and with washing and suctioning, there was no active bleed. Probably, most fluid was instilled into the right lower lobe. On the left side, there was some bloody mucus plug in the left lower lobe, but less than the right and this was washed and suctioned and really no significant mucus plugging in the left upper lobe. This was all washed and suctioned. There were no true endobronchial lesions in left upper lobe including the lingula of the left lower lobe and as mentioned, there was no true active bleeding anywhere. At the end of the procedure, I felt that the bronchi were all patent and I felt that the endotracheal tube was patent. The patient tolerated the Unit #: [id number] #: [id number] Patient: APRIL RODRIGUEZ procedure well. No definite complications were noted from this procedure. The bronchial washings will be sent for the usual microbiology and cytology studies. Dictated by... Juanita Monreal/rozina TD: 02/13/2017 05:26 JOB #: [id number] OPERATIVE REPORT Page 1 of 1 X Vernon Dominguez MD X PROCEDURE OPERATIVE NOTE
--- NOTE | ~2017-01-28 | CT71 ---
[facility] A Service of [facility] RADIOLOGY TEXT RESULTS PATIENT: APRIL GILBERT LOCATION: [address] : 51 UNIT #: [id number] AGE: [address]: Jorge Douglas MD SEX: M ORDER DR: [id number] [facility] [address] [facility]. [place], [place] [address] [id number] I MR#: [id number] Acc #: [id number] NAME: APRIL GILBERT : 1950 SEX: M STUDY DATE/TIME: 02/01/2017 11:46 UNIT: [facility] ROOM: [facility] STUDY DESCRIPTION: CT Head Wo Contrast Attending Physician: Stephany Douglas M.D. Ordering Physician: Vernon Dominguez M.D. Primary Care Physician: Rachelle Reddy Aprn MEDICAL IMAGING REPORT This report is preliminary unless electronic signature is present EXAM CT brain without contrast. HISTORY Mental status decline for 3 days. No injury. TECHNIQUE Axial noncontrast images were obtained from the skull base to the vertex. This CT exam was performed with one or more of the following radiation dose reduction techniques: automatic exposure control, adjustment of mA and/or kV according to patient size, and iterative reconstruction. FINDINGS Ventricular size and configuration are normal. There is no evidence of acute infarct or hemorrhage. There are no extraaxial fluid collections. No mass lesion or mass effect is seen. There are no skull fractures. IMPRESSION Normal noncontrast head CT. Dictated by... Sha Mendosa M.D. THIS IS AN ELECTRONICALLY VERIFIED REPORT Sha Mendosa M.D. at 02/02/2017 10:33 PM DFL/ayala TD: 02/01/2017 22:58 JOB #: [id number] [facility] A Service of [facility] RADIOLOGY TEXT RESULTS PATIENT: APRIL GILBERT LOCATION: [address] : 51 UNIT #: [id number] AGE: [address]: Jorge Douglas MD SEX: M ORDER DR: MEDICAL IMAGING REPORT Page 1 of 1 COPY
--- NOTE | ~2017-01-28 | CT2 ---
[facility] A Service of [facility] & [facility] RADIOLOGY TEXT RESULTS PATIENT: APRIL GILBERT LOCATION: [address] : 51 UNIT #: [id number] AGE: [address]: Jorge Douglas MD SEX: M ORDER DR: [id number] [facility] [address] [facility]. [place], [place] [address] [id number] I MR#: [id number] Acc #: [id number] NAME: APRIL GILBERT. : 1950 SEX: M STUDY DATE/TIME: 02/08/2017 15:22 UNIT: [facility] ROOM: [facility] STUDY DESCRIPTION: CT Abd and Pelv W Cont Attending Physician: Jorge Douglas Ordering Physician: Stephany Douglas M.D. Primary Care Physician: Rachelle Reddy MEDICAL IMAGING REPORT This report is preliminary unless electronic signature is present EXAM CT abdomen and pelvis 02/08/2017. HISTORY COPD exacerbation with respiratory failure. Short of air, 01/28/2017. Cold feet and fingers. Rising white blood cell count. Evaluate for possible abscess per RN. Distended abdomen and tender. This a.m. HISTORY Gallbladder. The white blood cell count 39.4. TECHNIQUE CT abdomen and pelvis performed with intravenous administration of 100 mL Isovue-370. Please see today's dedicated CT of the chest for discussion of findings above the diaphragm. This CT exam was performed with one or more of the following radiation dose reduction techniques: automatic exposure control, adjustment of mA and/or kV according to patient size, and iterative reconstruction. COMPARISON STUDIES Comparison 02/01/2017. FINDINGS A 12 mm cyst segment 4 the liver unchanged. There is no suspicious focal hepatic parenchymal abnormality. The gallbladder is normal in volume. There is uncomplicated cholelithiasis. There is no biliary ductal dilatation or choledocholithiasis. Spleen, pancreas, adrenal glands unremarkable. There is a trace amount of fluid adjacent to the upper left kidney. This is new compared to prior examination and likely reflects the patient's overall fluid status. There is no drainable perinephric fluid collection. No hydronephrosis or nephrolithiasis and no findings to STS. [facility] A Service of [facility] & [facility] RADIOLOGY TEXT RESULTS PATIENT: APRIL GILBERT LOCATION: [facility]-23 : 51 UNIT #: [id number] AGE: [address]: Jorge Douglas MD SEX: M ORDER DR: suggest renal inflammation. There is no ureteral dilatation. CT Pelvis: No inguinal adenopathy. Ordoñez catheter in urinary bladder. Small amount of air in urinary bladder. Postoperative changes of prior prostatectomy. No pelvic or retroperitoneal adenopathy. Enteric tube terminates in distal stomach. Stomach otherwise unremarkable. Small bowel unremarkable. Appendix normal. Sxaidlbo-yv-gyrzs stool burden in the ascending and transverse colon. Similar appearance on prior study. Correlate with any clinical indication of constipation. There is an air fluid and stool seen throughout the colon to the rectum. There is uncomplicated distal colonic diverticulosis with no evidence of acute colonic inflammatory change. No pericolonic fluid. No wall thickening. The aorta is mildly ectatic measuring about 2.5 cm in diameter distally. Stable. There is moderate to marked body wall edema. This is largely new compared to the prior examination and is most pronounced along the lateral body wall extending into the thighs. There is a focus of subcutaneous fat stranding and haziness with a small focus of air in the anterior left pelvic wall. This may reflect focus of medicine administration. Correlate clinically. Within the subcutaneous edema adjacent to the inferior left oblique musculature, there are small foci of air. Etiology unclear. Infection with gas-forming organism is felt unlikely. This may be a reflection of medicine administration at this location as well. Please correlate clinically. Clinical followup recommended. There is no evidence of abscess at this location. Discrete drainable fluid collection not suggested. No acute-appearing bony abnormality. IMPRESSION 1. Uncomplicated cholelithiasis. 2. Trace fluid adjacent to the left kidney. New compared to 02/01/2017 and likely reflecting the patient's overall fluid status. No acute appearing renal parenchymal abnormalities. No renal obstruction. 3. Marked increase in body wall edema now moderate to severe in degree. Most pronounced along the lateral abdominal wall and extending into the lateral and anterior thighs bilaterally. Correlate clinically. 4. In the anterior left paracentral pelvic wall, there is a focus of subcutaneous fat stranding with small focus of associated air. No drainable fluid collection and no enhancement. I favor this is secondary to medicine administration at this location. Correlate clinically. 5. Similarly in the subcutaneous edema adjacent to the left inferior oblique musculature, there are foci of air. No enhancement. No localized drainable fluid collection. I would favor that this is a reflection of some instrumentation in this location as well perhaps medicine administration. Infection with gas-forming organism felt unlikely given the appearance. Please correlate with clinical exam. 6. Stable mildly ectatic distal abdominal aorta. 7. Stable hepatic cyst. STS. [facility] A Service of [facility] RADIOLOGY TEXT RESULTS PATIENT: APRIL GILBERT LOCATION: [address] : [birth year] UNIT #: [id number] AGE: [address]: Jorge Douglas MD SEX: M ORDER DR: Dictated by... Naren Geller M.D. THIS IS AN ELECTRONICALLY VERIFIED REPORT Naren Geller M.D. at 02/09/2017 10:48 PM Vamshi TD: 02/09/2017 11:36 JOB #: [id number] MEDICAL IMAGING REPORT Page 1 of 1 COPY
--- NOTE | ~2017-01-28 | CR71 ---
[facility] A Service of [facility] & [facility] RADIOLOGY TEXT RESULTS PATIENT: APRIL GILBERT LOCATION: [address] : 51 UNIT #: [id number] AGE: [address]: Jorge Douglas MD SEX: M ORDER DR: [id number] [facility] [address] [facility]. [place], [place] [address] [id number] I MR#: [id number] Acc #: [id number] NAME: APRIL GILBERT : 1950 SEX: M STUDY DATE/TIME: 02/04/2017 5:49 UNIT: [facility] ROOM: [facility] STUDY DESCRIPTION: CR Chest Single View Attending Physician: Stephany Douglas M.D. Ordering Physician: Stephany Douglas M.D. Primary Care Physician: Rachelle Reddy MEDICAL IMAGING REPORT This report is preliminary unless electronic signature is present EXAM Portable chest HISTORY 66-year-old male, respiratory failure, COPD exacerbation x7 days. Past history of prostate cancer. Smoker but recently quit. COMPARISON Portable chest 02/03/2017. FINDINGS Tubes and lines remain in satisfactory position, unchanged. No significant change in cardiopulmonary status. Continued mild pulmonary hyperinflation, patchy hyperlucency with prominent interstitial markings compatible with underlying emphysema, mild fibrosis. Small amount of bibasilar atelectasis. No dense consolidation, no sizable effusions and no pneumothorax. Dictated by... Jose Miguel Arrieta M.D. THIS IS AN ELECTRONICALLY VERIFIED REPORT Jose Miguel Arrieta M.D. at 02/05/2017 12:28 PM LIMA/daisy TD: 02/04/2017 21:41 JOB #: [id number] MEDICAL IMAGING REPORT Page 1 of 1 COPY
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
--- NOTE | ~2017-01-28 | FU ---
[facility] Nutrition Therapy DATE: 02/10/17 Patient: APRIL E OFELIA Physician: UGO Address: [address] [place] [address] Room/Bed: [address], Zip: [place] [address] Admit Date: 01/28/17 Date of : [birth year] Height: 5 6 Weight: 185 84 NUTRITION MONITORING/FOLLOW-UP: Reason: Nutrition follow up Anthropometrics: Ht: 5'6" Adm wt: 66.3 kg BMI: 23.6 Wt 02/10: 84 kg Labs: Cl- 99 Gluc 159 BUN 32 Meds: Fentanyl, precedex, solu-medrol, vitamin B12, therapeutic formula, folic acid, furosemide, bisacodyl, pepcid, MOM, D5% I&O's: 2844/2905, last BM 02/01- abdomen distended, stool in colon per RN (Bowel regimen started) Skin: no changes noted Edema: BUE 4+ BLE 1+ Hips/ abdomen/ trunk 3+ Estimated Nutrition Needs: 2798-5571 kcals (25-30 kcals/kg) 80-99 grams protein (1.2-1.5 grams/kg) Assessment: Chart reviewed, events noted. Pt remains intubated in the ICU. Per RN report, wean trial will likely be attempted today. Pt continues to receive Jevity 1.5 at goal rate of 55 mL/hr. Per pump history, the pt has received 89% goal volume of enteral nutrition over the past 24 hrs. Of note, the pt has not had a BM since 02/01. RN reports that the pt's abdomen is distended, and that his colon has stool in it. Bowel regimen has been started per MD orders. Dx: Inadequate protein-energy intake RT ventilator dependence AEB NPO status, pt received 69% goal volume x 24 hrs- RESOLVED New Dx: Inadequate oral intake RT ventilator dependence AEB NPO status, pt receiving enteral nutrition- ACTIVE Intervention: 1. Enteral nutrition Monitor, evaluation and goals: [facility] Nutrition Therapy DATE: 02/10/17 Patient: APRIL Diane OFELIA Physician: UGO Address: [address] [place] [address] Room/Bed: [address], Zip: [place] [address] Admit Date: 01/28/17 Date of : [birth year] Height: 5 6 Weight: 185 84 1. Enteral nutrition; provide >80% goal volume x 24 hrs- MET/ IN PROGRESS 2. GI; promote regular Gi function- NOT MET/ IN PROGRESS 3. Imrpove labs; glucose (NOT MET), BUN (MET), Ca++ (MET) 4. Weight; prevent unintentional weight loss- IN PROGRESS CONTINUE TO MONITOR ABOVE GOALS Recommendations: 1. Continue current enteral nutrition regimen with Jevity 1.5 @ 55 mL/hr. 2. Monitor the pt's GI function and optimize bowel regimen as needed. 3. If the pt is extubated, recommend [employer] evaluation. Advance diet per [employer] recommendations. No additional dietary restrictions recommended at this time. Status: Pt is at moderate nutritional risk. RD will continue to follow. Respectfully, CHRIS YADAV RD, LD [facility] cc: client file
--- NOTE | ~2017-01-28 | CR72 ---
[facility] A Service of [facility] & [facility] RADIOLOGY TEXT RESULTS PATIENT: APRIL GILBERT LOCATION: [address] : [birth year] UNIT #: [id number] AGE: [address]: Jorge Douglas MD SEX: M ORDER DR: [id number] [facility] [address] [facility]. [place], [place] [address] [id number] I MR#: [id number] Acc #: [id number] NAME: APRIL GILBERT : 1950 SEX: M STUDY DATE/TIME: 02/10/2017 4:47 UNIT: [facility] ROOM: [facility] STUDY DESCRIPTION: CR Chest Single View Portable Attending Physician: Stephany Douglas M.D. Ordering Physician: Stephany Douglas M.D. Primary Care Physician: Rachelle Reddy R.N. MEDICAL IMAGING REPORT This report is preliminary unless electronic signature is present EXAM Portable chest HISTORY Follow-up endotracheal tube. FINDINGS This portable view of the chest is compared with 02/08. There has been no change. The endotracheal tube is in good position with its tip 2.0 cm above the sunita. The central venous catheter tip is in the superior vena cava. The lungs are clear. Dictated by... Alvaro Duenas M.D. THIS IS AN ELECTRONICALLY VERIFIED REPORT Alvaro Duenas M.D. at 02/10/2017 1:36 PM Christian TD: 02/10/2017 13:19 JOB #: [id number] MEDICAL IMAGING REPORT Page 1 of 1 COPY
--- NOTE | ~2017-01-28 | FU ---
[facility] Nutrition Therapy DATE: 02/19/17 Patient: APRIL GILBERT Physician: UGO Address: [address] [place] [address] Room/Bed: [address] [place] [address], Zip: [place] [address] Admit Date: 01/28/17 Date of : 52 Height: 5 6 Weight: 158 72 NUTRITION MONITORING/FOLLOW-UP: Reason: PT SEEN FOR FOLLOW-UP DX: COPD EXAC Anthropometrics: 5'6", WT: 158# ( 72 KG), BMI: 25.5 ADMIT WEIGHT: 145# Labs: CA+:8.3, ALB: 3.1 (02/08/17) Meds: FERROUS GLUCONATE, PREDNISONE, VITAMIN B21, NOVOLOG, FOLIC ACID, FUROSEMIDE, MILK OF MAGNESIA, PEPCID, NACL I&O's: 560/1101, 1 BM NOTED Skin: REDNESS TO INNER BUTTOCKS/SCROTUM; REDNESS TO ABD/(L) ARM (PREVIOUSLY NOTED) EDEMA: BUE 2+ EDEMA; BLE TRACE EDEMA Estimated Nutrition Needs: [phone] KCAL 80-99 G PRO Assessment: CHART REVIEWED AND EVENTS NOTED. PT SEEN FOR FOLLOW-UP. PT REPORTS FAIR PO INTAKE AND APPETITE, NOTING NO C/O N/V/D. PT REPORTS TAKING BITES OF LUNCH TODAY. PER RN AND CHART, PT REQUIRING ASSISTACE W/PO INTAKE, NOTING EATING "MOST OF THE FOOD ON HIS PLATE". PT CONTINUES TO RECEIVE ENSURE PUDDING. PT REPORTED NO DIET QUESTIONS AT THIS VISIT. RD TO CONTINUE TO FOLLOW/REMAIN AVAILABLE. Dx: INADEQUATE ORAL INTAKE R/T CLINICAL CONDITION AEB NPO STATUS, PT RECEIVING ENTERAL NUTRITION.-IN PROGRESS/RESOLVED NEW Dx: INADEQUATE ORAL INTAKE R/T CLINICAL CONDITION AEB PT REPORT ABOVE. Intervention: 1. MECHANICAL SOFT + CC DIET 2. ENSURE PUDDING BID Monitoring, Evaluation and Goals: 1. ORAL INTAKE; ADVANCE DIET PER GERMAN INSTRUCTOR ONCE APPROPRIATE-MET 2. ENTERAL NUTRITION; PROVIDE >80% GOAL VOLUME X 24 HOURS-MET/RESOLVED 3. GI; PROMOTE REGULAR GI FUNCTION-IN PROGRESS 4. IMPROVE LABS; GLU (MET), BUN (MET) 5. WEIGHT; PREVENT UNINTENTIONAL WEIGHT LOSS-IN PROGRESS MONITOR ABOVE GOALS [facility] Nutrition Therapy DATE: 02/19/17 Patient: APRIL GILBERT Physician: UGO Address: [address] [place] [address] Room/Bed: [address] [place] [address], Zip: [place] [address] Admit Date: 01/28/17 Date of : [birth year] Height: 5 6 Weight: 158 72 Recommendations: 1. APPRECIATE FAMILY AND STAFF TO ENCOURAGE ADEQUATE PO INTAKE. CONTINUE TO PROVIDE ASSISTENCE W/PO INTAKE AND ORDERING MEALS NEEDED RD WILL F/U PER PROTOCOL PT IS MILDLY COMPROMISED Respectfully BLOSSOM SANTOS MS, RD, LD Food and Nutritional Services [facility] cc: client file
--- NOTE | ~2017-01-28 | CR72 ---
[facility] A Service of [facility] & [facility] RADIOLOGY TEXT RESULTS PATIENT: APRIL GILBERT LOCATION: [facility] 562- : 51 UNIT #: [id number] AGE: [address]: Jorge Douglas MD SEX: M ORDER DR: [id number] [facility] [address] [facility]. [place], [place] [address] [id number] I MR#: [id number] Acc #: [id number] NAME: APRIL GILBERT : 1950 SEX: M STUDY DATE/TIME: 01/29/2017 5:46 UNIT: [facility] ROOM: [facility] STUDY DESCRIPTION: CR Chest Single View Portable Attending Physician: Stephany Douglas M.D. Ordering Physician: Stephany Douglas M.D. Primary Care Physician: Rachelle Reddy MEDICAL IMAGING REPORT This report is preliminary unless electronic signature is present EXAM Single view chest. INDICATIONS Shortness of air and COPD. 1-day duration. FINDINGS Single portable AP view of the chest compared to 01/21/2017. The heart and mediastinal contours normal. The lungs are clear. No pleural effusion. IMPRESSION No acute cardiopulmonary findings. Dictated by... Arvind Gutierrez M.D. THIS IS AN ELECTRONICALLY VERIFIED REPORT Arvind Gutierrez M.D. at 01/29/2017 1:29 PM CHASE/mitchel TD: 01/29/2017 09:10 JOB #: [id number] MEDICAL IMAGING REPORT Page 1 of 1 COPY
--- NOTE | ~2017-01-28 | CR72 ---
[facility] A Service of [facility] RADIOLOGY TEXT RESULTS PATIENT: APRIL GILBERT LOCATION: [facility] 562-01 : 51 UNIT #: [id number] AGE: [address]: Jorge Douglas MD SEX: M ORDER DR: [id number] [facility] [address] [facility]. [place], [place] [address] [id number] I MR#: [id number] Acc #: [id number] NAME: APRIL GILBERT. : 1950 SEX: M STUDY DATE/TIME: 01/28/2017 20:56 UNIT: [facility] ROOM: [facility] STUDY DESCRIPTION: CR Chest Single View Portable Attending Physician: Stephany Douglas M.D. Ordering Physician: Satish Cox M.D. Primary Care Physician: Rachelle Reddy MEDICAL IMAGING REPORT This report is preliminary unless electronic signature is present EXAM Single view of the chest dated 01/28/17. COMPARISON Single view chest dated 11/06/16. HISTORY Shortness of air, cough for 3 days. FINDINGS Single view of the chest was obtained. Minimal atelectatic changes abutting the left lateral to mid hemidiaphragm involving the left lung base cannot be excluded. No drainable fluid, pleural effusion, pneumothorax or dense consolidation. Heart is of normal size. Bones are unremarkable. Suspicious mild hyperinflation of lungs suggestive of emphysematous changes. IMPRESSION 1. Mild hyperinflation of lungs are noted suspicious for mild emphysematous changes in the appropriate clinical setting. 2. Minimal atelectatic changes in the lateral left lower lung zone abutting the left hemidiaphragm. Dictated by... Sherley Montgomery M.D. THIS IS AN ELECTRONICALLY VERIFIED REPORT Sherley Montgomery M.D. at 01/29/2017 2:43 PM CPR/bd TD: 01/29/2017 06:19 JOB #: [id number] [facility] A Service of [facility] RADIOLOGY TEXT RESULTS PATIENT: APRIL GILBERT LOCATION: [facility] 562-01 : 51 UNIT #: [id number] AGE: [address]: Jorge Douglas MD SEX: M ORDER DR: MEDICAL IMAGING REPORT Page 1 of 1 COPY
--- NOTE | ~2017-01-28 | CR72 ---
[facility] A Service of [facility] & [facility] RADIOLOGY TEXT RESULTS PATIENT: APRIL GILBERT LOCATION: [address] : 51 UNIT #: [id number] AGE: [address]: Jorge Douglas MD SEX: M ORDER DR: [id number] [facility] [address] [facility]. [place], [place] [address] [id number] I MR#: [id number] Acc #: [id number] NAME: APRIL GILBERT. : 1950 SEX: M STUDY DATE/TIME: 02/07/2017 6:00 UNIT: [facility] ROOM: [facility] STUDY DESCRIPTION: CR Chest Single View Portable Attending Physician: Stephany Douglas M.D. Ordering Physician: Vernon Dominguez M.D. Primary Care Physician: Rachelle Reddy Aprn MEDICAL IMAGING REPORT This report is preliminary unless electronic signature is present EXAM Portable chest, 02/07. INDICATION COPD. Respiratory failure. Ventilator patient. FINDINGS AP portable chest is compared with 02/06/2017. ET tube and left IJ line are in good position. Heart size normal. There is emphysema. Mild infiltrate or atelectasis again seen in both bases, stable. No pneumothorax. Dictated by... Vaughn Funes Jr., M.D. THIS IS AN ELECTRONICALLY VERIFIED REPORT Vaughn Funes Jr., M.D. at 02/07/2017 4:09 PM PREMA/ayala TD: 02/07/2017 09:31 JOB #: [id number] MEDICAL IMAGING REPORT Page 1 of 1 COPY
--- NOTE | ~2017-01-28 | CR72 ---
[facility] A Service of [facility] & [facility] RADIOLOGY TEXT RESULTS PATIENT: APRIL GILBERT LOCATION: [place] [id number] : 51 UNIT #: [id number] AGE: [address]: Jorge Douglas MD SEX: M ORDER DR: [id number] [facility] [address] [place], [place] [address] [id number] I MR#: [id number] Acc #: [id number] NAME: APRIL GILBERT : 1950 SEX: M STUDY DATE/TIME: 02/11/2017 6:21 UNIT: [facility] ROOM: [facility] STUDY DESCRIPTION: CR Chest Single View Portable Attending Physician: Jorge Douglas Ordering Physician: Stephany Douglas M.D. Primary Care Physician: Rachelle Reddy MEDICAL IMAGING REPORT This report is preliminary unless electronic signature is present EXAM Portable chest one view, 02/11/17 COMPARISON STUDIES: 02/10/17 HISTORY Respiratory failure symptoms for about 2 weeks. FINDINGS ET tube present 3 to 4 cm above sunita. Left IJ central line and NG tube in place. Mildly hyperexpanded lungs without consolidation or effusion or pneumothorax. Lung aeration slightly improved since 02/10. Dictated by... Andrae Rodriguez M.D. THIS IS AN ELECTRONICALLY VERIFIED REPORT Andrae Rodriguez M.D. at 02/12/2017 10:24 AM BARRETT/candis TD: 02/11/2017 14:30 JOB #: [id number] MEDICAL IMAGING REPORT Page 1 of 1 COPY
--- NOTE | ~2017-01-28 | CR7 ---
[facility] A Service of [facility] & [facility] RADIOLOGY TEXT RESULTS PATIENT: APRIL GILBERT LOCATION: [address] : 51 UNIT #: [id number] AGE: [address]: Jorge Douglas MD SEX: M ORDER DR: [id number] [facility] [address] [facility]. [place], [place] [address] [id number] I MR#: [id number] Acc #: [id number] NAME: APRIL GILBERT : 1950 SEX: M STUDY DATE/TIME: 02/01/2017 12:45 UNIT: [facility] ROOM: [facility] STUDY DESCRIPTION: CR Abdomen Single AP View Attending Physician: Stephany Douglas M.D. Ordering Physician: Stephany Douglas M.D. Primary Care Physician: Rachelle Reddy Aprn MEDICAL IMAGING REPORT This report is preliminary unless electronic signature is present EXAM Portable abdomen. HISTORY NG tube placement. FINDINGS Portable radiograph of the abdomen for NG tube placement demonstrates the NG tube tip is in the left upper quadrant at the level of the gastric fundus 6 cm beyond the EG junction and the side-hole is positioned in the distal esophagus 2 cm above the EG junction. The tube could be advanced at least 10 cm for improved positioning in the stomach. Visualized bowel gas pattern is unremarkable. Moderate amount of stool in the right colon. The exam does not include the lower pelvis. Dictated by... Sha Mendosa M.D. THIS IS AN ELECTRONICALLY VERIFIED REPORT Sha Mendosa M.D. at 02/02/2017 10:33 PM CHESTER/ayala TD: 02/01/2017 22:48 JOB #: [id number] MEDICAL IMAGING REPORT Page 1 of 1 COPY
--- NOTE | ~2017-01-28 | CR72 ---
[facility] A Service of [facility] & [facility] RADIOLOGY TEXT RESULTS PATIENT: APRIL GILBERT LOCATION: [place] [id number] : 51 UNIT #: [id number] AGE: [address]: Jorge Douglas MD SEX: M ORDER DR: [id number] [facility] [address] [facility]. [place], [place] [address] [id number] I MR#: [id number] Acc #: [id number] NAME: APRIL GILBERT : 1950 SEX: M STUDY DATE/TIME: 02/12/2017 5:53 UNIT: [facility] ROOM: [facility] STUDY DESCRIPTION: CR Chest Single View Portable Attending Physician: Jorge Douglas Ordering Physician: Vernon Dominguez M.D. Primary Care Physician: Rachelle Reddy MEDICAL IMAGING REPORT This report is preliminary unless electronic signature is present EXAM Single view chest INDICATIONS Respiratory failure. COPD exacerbation. FINDINGS Single portable AP view of the chest compared to 02/11/2017. Support lines and tubes remain in place. Heart and mediastinal contours are unchanged. There is some mild atelectasis in lung bases. No pneumothorax. IMPRESSION Developing atelectasis in the lung bases. Dictated by... Arvind Gutierrez M.D. THIS IS AN ELECTRONICALLY VERIFIED REPORT Arvind Gutierrez M.D. at 02/12/2017 8:02 AM CHASE/candis TD: 02/12/2017 07:18 JOB #: [id number] MEDICAL IMAGING REPORT Page 1 of 1 COPY
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
--- NOTE | ~2017-01-28 | CR72 ---
[facility] A Service of [facility] & [facility] RADIOLOGY TEXT RESULTS PATIENT: APRIL GILBERT LOCATION: [address] : 51 UNIT #: [id number] AGE: [address]: Jorge Douglas MD SEX: M ORDER DR: [id number] [facility] [address] [facility]. [place], [place] [address] [id number] I MR#: [id number] Acc #: [id number] NAME: APRIL GILBERT : 1950 SEX: M STUDY DATE/TIME: 01/31/2017 13:16 UNIT: [facility] ROOM: [facility] STUDY DESCRIPTION: CR Chest Single View Portable Attending Physician: Stephany Douglas M.D. Ordering Physician: Ed Doctor [id number] [facility] Primary Care Physician: Rachelle Reddy MEDICAL IMAGING REPORT This report is preliminary unless electronic signature is present EXAM Portable chest HISTORY Central line placement. FINDINGS An AP view is obtained. There has been insertion of a left IJ line tip in the SVC. There is no pneumothorax. Heart size is normal. There is scarring in the bases with no acute infiltrates. CONCLUSION New left IJ line tip in the SVC and no pneumothorax. Dictated by... Naren Blanco M.D. THIS IS AN ELECTRONICALLY VERIFIED REPORT Naren Blanco M.D. at 02/10/2017 2:59 PM CHRISTINAO/radha TD: 01/31/2017 20:05 JOB #: [id number] MEDICAL IMAGING REPORT Page 1 of 1 COPY
--- NOTE | ~2017-01-28 | CT4 ---
[facility] A Service of [facility] & [facility] RADIOLOGY TEXT RESULTS PATIENT: APRIL GILBERT LOCATION: [address] : 51 UNIT #: [id number] AGE: [address]: Jorge Douglas MD SEX: M ORDER DR: [id number] [facility] [address] [facility]. [place], [place] [address] [id number] I MR#: [id number] Acc #: [id number] NAME: APRIL GILBERT : 1950 SEX: M STUDY DATE/TIME: 02/01/2017 11:48 UNIT: [facility] ROOM: [facility] STUDY DESCRIPTION: CT Abd and Pelv Wo Cont Attending Physician: Stephany Douglas M.D. Ordering Physician: Vernon Dominguez M.D. Primary Care Physician: Rachelle Reddy Aprn MEDICAL IMAGING REPORT This report is preliminary unless electronic signature is present EXAM CT abdomen and pelvis without contrast. HISTORY Abdomen distension today. TECHNIQUE CT abdomen and pelvis was performed without contrast. This CT exam was performed with one or more of the following radiation dose reduction techniques: automatic exposure control, adjustment of mA and/or kV according to patient size, and iterative reconstruction. FINDINGS CT ABDOMEN: Incidental 1.2 cm cyst in the medial segment left hepatic lobe. Several small gallstones and a larger stone measuring 9 mm, but no gallbladder distension or wall thickening. No biliary dilatation. No bowel dilatation. No ascites. The spleen, pancreas, kidneys, and adrenal glands are normal. No bowel dilatation. No adenopathy. Mild ectasia of the distal abdominal aorta measuring 2.6 cm in AP dimension just above the bifurcation, similar to the prior CT. CT PELVIS: Normal appendix. Minimal free fluid. No bowel dilatation. Postop changes in the prostate gland. Ordoñez catheter in the bladder. Minimal free fluid. Small left inguinal hernia containing fat. 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 IMPRESSION 1. No acute findings in the abdomen or pelvis. 2. Very minimal free fluid in the pelvis. STS. [facility] A Service of [facility] & [facility] RADIOLOGY TEXT RESULTS PATIENT: APRLI GILBERT [facility] UNIT #: [id number] AGE: [address]: Jorge Douglas MD SEX: M ORDER DR: 3. No bowel dilatation. 4. Normal appendix. 5. Multiple gallstones. 6. Postop changes in the prostate gland. Ordoñez catheter in the bladder. 7. Avascular necrosis in the femoral heads bilaterally. Dictated by... Sha Mendosa M.D. THIS IS AN ELECTRONICALLY VERIFIED REPORT Sha Mendosa M.D. at 02/02/2017 10:34 PM CHESTER/ayala TD: 02/01/2017 23:05 JOB #: [id number] MEDICAL IMAGING REPORT Page 1 of 1 COPY
--- NOTE | ~2017-01-28 | CR72 ---
[facility] A Service of [facility] & [facility] RADIOLOGY TEXT RESULTS PATIENT: APRIL GILBERT LOCATION: [address] : 51 UNIT #: [id number] AGE: [address]: Jorge Douglas MD SEX: M ORDER DR: [id number] [facility] [address] [facility]. [place], [place] [address] [id number] I MR#: [id number] Acc #: [id number] NAME: APRIL GILBERT : 1950 SEX: M STUDY DATE/TIME: 02/01/2017 8:13 UNIT: [facility] ROOM: [facility] STUDY DESCRIPTION: CR Chest Single View Portable Attending Physician: Stephany Douglas M.D. Ordering Physician: Dominick England M.D. Primary Care Physician: Rachelle Reddy R.N. MEDICAL IMAGING REPORT This report is preliminary unless electronic signature is present EXAM Frontal chest, 02/01/2017. INDICATIONS 66-year-old male status post intubation, short of air, COPD. TECHNIQUE Frontal chest compared with 02/01/2017. FINDINGS ET tube tip in good position approximately 5.6 cm above the sunita. Left-sided central line unchanged. The aorta is tortuous and ectatic but stable. Lungs demonstrate sequela of COPD. Atelectasis or faint infiltrate in the left lung base. No pneumothorax. IMPRESSION 1. ET tube tip in good position above the sunita. No pneumothorax. No other significant interval change from 0501 hours. Dictated by... Alec Abel M.D. THIS IS AN ELECTRONICALLY VERIFIED REPORT Alec Abel M.D. at 02/02/2017 8:44 AM Gregor TD: 02/01/2017 19:31 JOB #: [id number] MEDICAL IMAGING REPORT Page 1 of 1 COPY
--- NOTE | ~2017-01-28 | CR72 ---
[facility] A Service of [facility] & [facility] RADIOLOGY TEXT RESULTS PATIENT: APRIL GILBERT LOCATION: [address] : 51 UNIT #: [id number] AGE: [address]: Jorge Douglas MD SEX: M ORDER DR: [id number] [facility] [address] [facility]. [place], [place] [address] [id number] I MR#: [id number] Acc #: [id number] NAME: APRIL GILBERT. : 1950 SEX: M STUDY DATE/TIME: 02/02/2017 5:49 UNIT: [facility] ROOM: [facility] STUDY DESCRIPTION: CR Chest Single View Portable Attending Physician: Stephany Douglas M.D. Ordering Physician: Vernon Dominguez M.D. Primary Care Physician: Rachelle Reddy Aprn MEDICAL IMAGING REPORT This report is preliminary unless electronic signature is present EXAM Frontal chest 02/02/2017 INDICATIONS 66-year-old male with respiratory failure, COPD exacerbation. Ventilator patient. Symptoms 5 days. History of prostate cancer. TECHNIQUE Frontal chest was performed. COMPARISON Correlation is made with CT 02/01/2017. FINDINGS Enteric tube tip in good position at the level of the proximal body stomach. The proximal side-hole is at the GE junction level. Left-sided central line and ET tube appear to be in satisfactory position. Cardiac silhouette stable. Vascularity within normal limits. The lungs are emphysematous. Bibasilar atelectasis or infiltrates persist. No new effusion or dense consolidation. The approximately 1-cm nodule in the right lung identified on CT yesterday has no definite plain film correlate, but may correspond to a faint nodular density interposed between the posterior right seventh and eighth ribs. Please see the prior CT scan for further details and followup recommendations. IMPRESSION 1. Tubes and lines in satisfactory position. No pneumothorax. 2. Bibasilar atelectasis or infiltrates not significantly changed. No new effusion. 3. Underlying emphysema with chronic -appearing lung changes. 4. There is a faint nodular density in the midlung zone on the right. This may correspond to the indeterminate pulmonary nodule on CT performed yesterday. See that report for further details and STS. [facility] A Service of [facility] & [facility] RADIOLOGY TEXT RESULTS PATIENT: APRIL GILBERT LOCATION: [address] : [birth year] UNIT #: [id number] AGE: [address]: Jorge Douglas MD SEX: M ORDER DR: followup recommendations. Dictated by... Alec Abel M.D. THIS IS AN ELECTRONICALLY VERIFIED REPORT Alec Abel M.D. at 02/02/2017 4:12 PM Tomas TD: 02/02/2017 14:40 JOB #: [id number] MEDICAL IMAGING REPORT Page 1 of 1 COPY
--- NOTE | ~2017-01-28 | FU ---
[facility] Nutrition Therapy DATE: 02/06/17 Patient: APRIL GILBERT Physician: UGO Address: [address] [place] [address] Room/Bed: [address], Zip: [place] [address] Admit Date: 01/28/17 Date of : 52 Height: 5 6 Weight: 156 71 NUTRITION MONITORING/FOLLOW-UP: Reason: Nutrition follow up Anthropometrics: Ht: 5'6" Wt: 66.3 kg BMI: 23.6 Labs: Gluc 137 BUN 41 Ca++ 8.3 Meds: Fentanyl, solu-medrol, vitamin B12, therapeutic formula, folic acid, furosemide, pepcid, MOM I&O's: 1682/545, last BM 02/01 Skin: no changes noted Edema: Trace- pedal/ sclera BUE 1+ Generalized- orbital Estimated Nutrition Needs: [id number] kcals (25-30 kcals/kg) 80-99 grams protein (1.2-1.5 grams/kg) Diet: NPO Assessment: Chart reviewed, events noted. Pt remains intubated in the ICU. Propofol has been off since last night per RN report. Per information obtained at rounds, the pt failed his wean yesterday. Pt is receiving enteral nutrition with Jevity 1.5 @ 55 mL/hr (goal rate), with no tolerance issues reported by RN. Per pump history, the pt has received 69% goal volume over the past 24 hrs. Please see recommendations below. Dx: Inadequate protein-energy intake RT ventilator dependence AEB NPO status, pt received 69% goal volume over the past 24 hrs - RESOLVING/IN PROGRESS Intervention: 1. Enteral nutrition Monitoring, Evaluation and Goals: 1. EN; provide >80% goal volume X 24 hrs- NOT MET/ IN PROGRESS (69% GOAL VOLUME RECEIVED) 2. GI; promote regular GI function- NOT MET/ IN PROGRESS (BOWEL REGIMEN STARTED) 3. Improve labs; glucose, BUN, Ca++- NOT MET/ IN PROGRESS 4. Weight; prevent unintentional weight loss- IN PROGRESS [facility] Nutrition Therapy DATE: 02/06/17 Patient: APRIL GILBERT Physician: UGO Address: [address] [place] [address] Room/Bed: [address], Zip: [place] [address] Admit Date: 01/28/17 Date of : [birth year] Height: 5 6 Weight: 156 71 CONTINUE TO MONITOR ABOVE GOALS Recommendations: 1. Continue enteral nutrition with Jevity 1.5 @ goal of 55 mL/hr. 2. Optimize the pt's bowel regimen noting last BM on 02/01. 3. If the pt is extubated, recommend CLINICAL EDUCATION MANAGER evaluation. Advance diet per CLINICAL EDUCATION MANAGER recommendations. Further dietary restrictions to be determined as appropriate. Status: Pt is at moderate nutritional risk. RD will continue to follow. Respectfully, CHRIS YADAV RD, LD [facility] cc: client file
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
--- NOTE | ~2017-01-28 | CR72 ---
[facility] A Service of [facility] & [facility] RADIOLOGY TEXT RESULTS PATIENT: APRIL GILBERT LOCATION: [address] : [birth year] UNIT #: [id number] AGE: [address]: Jorge Douglas MD SEX: M ORDER DR: [id number] [facility] [address] [facility]. [place], [place] [address] [id number] I MR#: [id number] Acc #: [id number] NAME: APRIL GILBRET : 1950 SEX: M STUDY DATE/TIME: 02/13/2017 5:37 UNIT: [facility] ROOM: [facility] STUDY DESCRIPTION: CR Chest Single View Portable Attending Physician: Stephany Douglas M.D. Ordering Physician: Vernon Dominguez M.D. Primary Care Physician: Rachelle Reddy Aprn MEDICAL IMAGING REPORT This report is preliminary unless electronic signature is present EXAM Frontal chest 02/13/2017 INDICATION Shortness of air and tachycardia with chest pain and respiratory failure in a 66-year-old male since February 11. Right-sided chest pain. TECHNIQUE Frontal chest compared with 02/12/2017. FINDINGS Preexisting tubes and lines in satisfactory position. Cardiac silhouette stable. Vascularity normal. No new opacities. Probable atelectasis in the left lung base. No pneumothorax. IMPRESSION No significant change from 02/12/2017. Dictated by... Alec Abel M.D. THIS IS AN ELECTRONICALLY VERIFIED REPORT Alec Abel M.D. at 02/13/2017 4:00 PM ANMOL/david TD: 02/13/2017 06:47 JOB #: [id number] MEDICAL IMAGING REPORT Page 1 of 1 COPY
--- NOTE | ~2017-01-28 | CR72 ---
[facility] A Service of [facility] & [facility] RADIOLOGY TEXT RESULTS PATIENT: APRIL GILBERT LOCATION: [facility] [id number] : [birth year] UNIT #: [id number] AGE: [address]: Jorge Douglas MD SEX: M ORDER DR: [id number] [facility] [address] [facility]. [place], [place] [address] [id number] I MR#: [id number] Acc #: [id number] NAME: APRIL GILBERT : 1950 SEX: M STUDY DATE/TIME: 02/18/2017 6:24 UNIT: [facility] ROOM: [facility] STUDY DESCRIPTION: CR Chest Single View Portable Attending Physician: Stephany Douglas M.D. Ordering Physician: Stephany Douglas M.D. Primary Care Physician: Rachelle Reddy R.N. MEDICAL IMAGING REPORT This report is preliminary unless electronic signature is present EXAM Portable chest INDICATION Followup support lines and tubes, respiratory failure. COMPARISON 02/13/2017 FINDINGS The ET tube and central venous catheter and NG tubes have all been removed. There is a tracheostomy tube in place. There are no new infiltrates in the lungs and the heart size is stable. IMPRESSION 1. Removal of support lines and tubes from the previous study and there appears to be a tracheostomy tube in place. 2. No new infiltrates in the lungs. Dictated by... Shreyas Arrieta M.D. THIS IS AN ELECTRONICALLY VERIFIED REPORT Shreyas Arrieta M.D. at 02/19/2017 4:59 PM Brynn TD: 02/18/2017 14:13 JOB #: [id number] MEDICAL IMAGING REPORT Page 1 of 1 COPY
--- NOTE | ~2017-01-28 | CR72 ---
[facility] A Service of [facility] & [facility] RADIOLOGY TEXT RESULTS PATIENT: APRIL GILBERT LOCATION: [address] : [birth year] UNIT #: [id number] AGE: [address]: Jorge Douglas MD SEX: M ORDER DR: [id number] [facility] [address]. [place], [place] [address] [id number] I MR#: [id number] Acc #: [id number] NAME: APRIL GILBERT : 1950 SEX: M STUDY DATE/TIME: 02/05/2017 4:24 UNIT: [facility] ROOM: [facility] STUDY DESCRIPTION: CR Chest Single View Portable Attending Physician: Stephany Douglsa M.D. Ordering Physician: Stephany Douglas M.D. Primary Care Physician: Rachelle Reddy MEDICAL IMAGING REPORT This report is preliminary unless electronic signature is present EXAM Single view chest. INDICATIONS COPD and respiratory failure. FINDINGS Single portable AP of the chest compared to 02/04/2017. Support lines and tubes are unchanged. Heart and mediastinal contours are stable. There is mild bibasilar airspace opacities and/or small effusions. No pneumothorax. IMPRESSION No interval change. Dictated by... Arvind Gutierrez M.D. THIS IS AN ELECTRONICALLY VERIFIED REPORT Arvind Gutierrez M.D. at 02/05/2017 11:40 PM RPC/franck TD: 02/05/2017 11:50 JOB #: [id number] MEDICAL IMAGING REPORT Page 1 of 1 COPY
--- NOTE | ~2017-01-28 | CR72 ---
[facility] A Service of [facility] & [facility] RADIOLOGY TEXT RESULTS PATIENT: APRIL GILBERT LOCATION: [place] [id number] : [birth year] UNIT #: [id number] AGE: [address]: Jorge Douglas MD SEX: M ORDER DR: [id number] [facility] [address]. [place], [place] [address] [id number] I MR#: [id number] Acc #: [id number] NAME: APRIL GILBERT : 1950 SEX: M STUDY DATE/TIME: 02/01/2017 5:01 UNIT: [facility] ROOM: [facility] STUDY DESCRIPTION: CR Chest Single View Portable Attending Physician: Stephany Douglas M.D. Ordering Physician: Stephany Douglas M.D. Primary Care Physician: Rachelle Reddy Aprn MEDICAL IMAGING REPORT This report is preliminary unless electronic signature is present EXAM Single view chest INDICATIONS Respiratory failure. COPD and chest pain. TECHNIQUE AP radiograph of the chest COMPARISON 01/31/2017 FINDINGS The left IJ terminates over the SVC. Heart AND mediastinal contours are unchanged. No new pulmonary opacities. IMPRESSION No interval change. Dictated by... Arvind Gutierrez M.D. THIS IS AN ELECTRONICALLY VERIFIED REPORT Arvind Gutierrez M.D. at 02/02/2017 1:02 AM CHASE/sujit TD: 02/01/2017 17:53 JOB #: [id number] MEDICAL IMAGING REPORT Page 1 of 1 COPY
--- NOTE | ~2017-01-28 | FU ---
[facility] Nutrition Therapy DATE: 02/14/17 Patient: APRIL GILBERT Physician: LOLIBOTiffanie Address: [address] [place] [address] Room/Bed: [address], Zip: [place] [address] Admit Date: 01/28/17 Date of : 52 Height: 5 6 Weight: 165 75 NUTRITION MONITORING/FOLLOW-UP: Reason: Follow up Anthropometrics: Ht: 5'6" Adm wt: 66.3 kg BMI: 23.6 Wt 02/14: 75 kg Labs: Gluc 201 BUN 25 Accuchecks 144 Meds: Prednisone, NaCl, novolog, D5%, bisacodyl, vitamin B12, therapeutic formula, folic acid, furosemide, pepcid IV, MOM I&O's: 1694/2200, last BM 02/12 Skin: Redness to inner buttocks/ scrotum Redness/ purple to abdomen/ left arm Edema: BUE 2+ Generalized- trunk Estimated Nutrition Needs: 0164-5668 kcals (25-30 kcals/kg) 80-99 grams protein (1.2-1.5 grams/kg) Diet: NPO Assessment: Chart reviewed, events noted. Pt was extubated last night, remains in ICU. Pt continues to receive enteral nutrition with Jevity 1.5 @ goal of 55 ml/hr. No tolerance issues reported by RN. Per pump history, the pt has received 87% goal volume of enteral nutrition over the past 24 hrs. No PHYSICAL FITNESS TRAINER orders at this time. Pt was asleep upon RD visit to room. Please refer to recommendations below. Dx: Inadequate oral intake RT clinical condition AEB NPO status, pt receiving enteral nutrition- ACTIVE Intervention: 1. PHYSICAL FITNESS TRAINER once feasible 2. Continue EN Monitoring, Evaluation and Goals: 1. Enteral nutrition; provide >80% goal volume x 24 hrs- MET/ IN PROGRESS 2. GI; promote regular GI function- IN PROGRESS [facility] Nutrition Therapy DATE: 02/14/17 Patient: APRIL GILBERT Physician: UGO Address: [address] [facility] Room/Bed: [address], Zip: [place] [address] Admit Date: 01/28/17 Date of : [birth year] Height: 5 6 Weight: 165 75 3. Improve labs; glucose (NOT MET), BUN (IN PROGRESS/ IMPROVED) 4. Weight; prevent unintentional weight loss- IN PROGRESS NEW GOALS (IN ADDITION TO ABOVE): 1. Oral intake; Advance diet per PHYSICAL FITNESS TRAINER once appropriate Recommendations: 1. Continue current enteral nutrition regimen with Jevity 1.5 @ 55 mL/hr. 2. Recommend PHYSICAL FITNESS TRAINER evaluation. Advance diet per PHYSICAL FITNESS TRAINER recommendations + heart healthy restriction. RD will follow up to order supplements as needed. 3. If advanced to PO diet and pt is consuming 50% of meals or greater, discontinue enteral nutrition. Status: Pt is at mild-moderate nutritional risk. RD will continue to follow. Respectfully, CHRIS YADAV RD, LD Food and Nutritional Services [facility] cc: client file
--- NOTE | ~2017-01-28 | CR72 ---
[facility] A Service [facility] RADIOLOGY TEXT RESULTS PATIENT: APRIL GILBERT LOCATION: [place] [address] : [birth year] UNIT #: [id number] AGE: [address]: Jorge Douglas MD SEX: M ORDER DR: [id number] [facility] [address] [place], [place] [address] [id number] I MR#: [id number] Acc #: [id number] NAME: APRIL GILBERT : 1950 SEX: M STUDY DATE/TIME: 01/31/2017 6:11 UNIT: [facility] ROOM: [facility] STUDY DESCRIPTION: CR Chest Single View Portable Attending Physician: Stephany Douglas M.D. Ordering Physician: Stephany Douglas M.D. Primary Care Physician: Rachelle Reddy Aprn MEDICAL IMAGING REPORT This report is preliminary unless electronic signature is present EXAM Frontal chest 01/31/2017 INDICATIONS COPD exacerbation, chest pain. Symptoms began on January 29. Hypertension, history of prostate cancer. TECHNIQUE Frontal chest COMPARISON 01/30/2017 FINDINGS Cardiac silhouette is within normal limits. The aorta is elongated and tortuous. Vascularity unremarkable. Pulmonary hyperinflation is present. Faint atelectasis or, less likely infiltrates, in the lung bases. No new effusion or pneumothorax. pneumothorax. IMPRESSION No significant change from the prior study. Dictated by... Alec Abel M.D. THIS IS AN ELECTRONICALLY VERIFIED REPORT Alec Abel M.D. at 01/31/2017 3:31 PM ANMOL/sujit TD: 01/31/2017 13:57 JOB #: [id number] [facility] A Service [facility] RADIOLOGY TEXT RESULTS PATIENT: APRIL GILBERT LOCATION: [place] [address] : [birth year] UNIT #: [id number] AGE: [address]: Jorge Douglas MD SEX: M ORDER DR: MEDICAL IMAGING REPORT Page 1 of 1 COPY
[~2017-01-28 20:33] MED LIST changes: +JANTOVEN7.5 MG PO
[2017-01-28] MEDS ORDERED: FINASTERIDE5 M1 PO (20:50)
[2017-01-28] MEDS ORDERED: LOPRESSOR PO (20:50)
[2017-01-28] MEDS ORDERED: DULERA 200 MCG/13 GM INH (20:50)
[2017-01-28] MEDS ORDERED: IBUPROFEN100 MG PO (20:50)
[2017-01-28] MEDS ORDERED: MILK OF MAGNESIA PO (20:51)
[2017-01-28] MEDS ORDERED: TYLENOL WITH C1 EACH PO (20:52)
[2017-01-28] MEDS ORDERED: LORTAB 5-325 M1 EACH PO (20:52)
[2017-01-28 21:12] LABS: POC - TROPONIN <0.05 ng/mL (<=0.05)
[2017-01-28 21:13] LABS: BASOPHIL# 0.1 X10e3 (0-0.3); BASOPHIL% 0.5 % (0-2.5); EOSINOPHIL% 0.2 % (0.0-7.0); HEMATOCRIT 43.7 % (38.0-50.0); HEMOGLOBIN 14.3 gm/dL (13.0-16.0); LYMPHOCYTE# 1.1 X10e3 (1.0-3.5); LYMPHOCYTE% 8.3 % (17.0-45.0); MEAN CELL VOLUME 89.5 FL (83-96); MEAN CORPUSCULAR HEMOGLOBIN 29.3 PG (28-34); MEAN CORPUSCULAR HGB CONC 32.7 g/dL (30-36); MEAN PLATELET VOLUME 10.5 FL (6.5-11.5); MONOCYTE# 2.3 X10e3 (0-1.0); MONOCYTE% 16.9 % (3.0-12.0); NEUTROPHIL# 10.2 X10e3 (1.5-7.1); NEUTROPHIL% 74.1 % (40-75); PLATELET COUNT 217 X10e3 (140-420); RED BLOOD COUNT 4.88 X10e (3.90-5.60); RED CELL DISTRIBUTION WIDTH 15.2 % (11.0-15.5); WHITE BLOOD COUNT 13.8 X10e3 (4.0-10.5)
[2017-01-28 21:14] LABS: DIFF IND NO
[2017-01-28 21:40] LABS: INR 2.5; PARTIAL THROMBOPLASTIN TIME 37.9 SECONDS (23.5-31.3); PROTHROMBIN TIME (PATIENT) 26.9 SECONDS (10.0-11.7)
[2017-01-28 23:20] LABS: ALBUMIN SERUM 4.6 g/dL (3.5-5.0); BILIRUBIN, DIRECT 0.2 mg/dL (0.0-0.2); BILIRUBIN,INDIRECT 0.5 mg/dL (0.0-0.9); BILIRUBIN,TOTAL 0.7 mg/dL (0.2-2.0); BUN/CREATININE RATIO 14.28; CALCIUM SERUM 9.3 mg/dL (8.4-10.2); CREATININE SERUM 0.7 mg/dL (0.6-1.4); GLOM FILT RATE Estimated 114.8 mL/min (>60); POTASSIUM 4.6 mmol/L (3.5-5.1)
[2017-01-29 03:48] LABS: ARTERIAL BLD GAS O2 SATURATION 96.2 % (90.0-100.0); ARTERIAL BLOOD GAS CARBOXY HB 0.9 %sat (0.0-9.0); ARTERIAL BLOOD GAS HCO3 35.2 mmol/L; ARTERIAL BLOOD GAS MET HB 0.8 %sat (0.0-2.0); ARTERIAL BLOOD GAS pH 7.287 (7.350-7.450)
[2017-01-29 03:51] LABS: ARTERIAL BLOOD GAS ALLEN TEST NORMAL; ARTERIAL BLOOD GAS ART SITE LEFT RADIAL; ARTERIAL BLOOD GAS DELIVERY NASAL CANNULA; ARTERIAL BLOOD GAS PCO2 73.7 mmHg (35.0-45.0); ARTERIAL DRAW? YES
[2017-01-29 07:34] LABS: BASOPHIL% 0.2 % (0-2.5); HEMATOCRIT 40.4 % (38.0-50.0); HEMOGLOBIN 13.1 gm/dL (13.0-16.0); LYMPHOCYTE# 0.2 X10e3 (1.0-3.5); MEAN CELL VOLUME 90.1 FL (83-96); MEAN CORPUSCULAR HEMOGLOBIN 29.1 PG (28-34); MEAN CORPUSCULAR HGB CONC 32.3 g/dL (30-36); MEAN PLATELET VOLUME 10.1 FL (6.5-11.5); MONOCYTE# 0.5 X10e3 (0-1.0); MONOCYTE% 4.9 % (3.0-12.0); NEUTROPHIL% 92.9 % (40-75); PLATELET COUNT 193 X10e3 (140-420); RED BLOOD COUNT 4.48 X10e (3.90-5.60); RED CELL DISTRIBUTION WIDTH 14.9 % (11.0-15.5); WHITE BLOOD COUNT 10.8 X10e3 (4.0-10.5)
[2017-01-29 07:42] LABS: DIFF IND NO
[2017-01-29 07:57] LABS: BUN/CREATININE RATIO 15.71; CALCIUM SERUM 9.4 mg/dL (8.4-10.2); CREATININE SERUM 0.7 mg/dL (0.6-1.4); GLOM FILT RATE Estimated 114.8 mL/min (>60); POTASSIUM 4.6 mmol/L (3.5-5.1)
[2017-01-30 05:15] LABS: ARTERIAL BLD GAS O2 SATURATION 97.2 % (90.0-100.0); ARTERIAL BLOOD GAS ALLEN TEST NORMAL; ARTERIAL BLOOD GAS ART SITE LEFT RADIAL; ARTERIAL BLOOD GAS CARBOXY HB 0.2 %sat (0.0-9.0); ARTERIAL BLOOD GAS DELIVERY NASAL CANNULA; ARTERIAL BLOOD GAS HCO3 37.3 mmol/L; ARTERIAL BLOOD GAS MET HB 0.8 %sat (0.0-2.0); ARTERIAL BLOOD GAS PCO2 67.2 mmHg (35.0-45.0); ARTERIAL BLOOD GAS pH 7.352 (7.350-7.450); ARTERIAL DRAW? YES
[2017-01-30 08:15] LABS: BASOPHIL# 0.1 X10e3 (0-0.3); BASOPHIL% 0.4 % (0-2.5); HEMATOCRIT 36.7 % (38.0-50.0); HEMOGLOBIN 12.5 gm/dL (13.0-16.0); LYMPHOCYTE# 0.4 X10e3 (1.0-3.5); LYMPHOCYTE% 2.7 % (17.0-45.0); MEAN CORPUSCULAR HEMOGLOBIN 29.5 PG (28-34); MEAN PLATELET VOLUME 9.7 FL (6.5-11.5); MONOCYTE# 1.2 X10e3 (0-1.0); MONOCYTE% 7.3 % (3.0-12.0); NEUTROPHIL# 14.2 X10e3 (1.5-7.1); NEUTROPHIL% 89.6 % (40-75); PLATELET COUNT 250 X10e3 (140-420); RED BLOOD COUNT 4.22 X10e (3.90-5.60); RED CELL DISTRIBUTION WIDTH 15.5 % (11.0-15.5); WHITE BLOOD COUNT 15.9 X10e3 (4.0-10.5)
[2017-01-30 08:16] LABS: MEAN CELL VOLUME 86.9 FL (83-96)
[2017-01-30 08:17] LABS: DIFF IND YES
[2017-01-30 08:42] LABS: PLATELET ESTIMATE NORMAL (NORMAL)
[2017-01-30 08:43] LABS: ANISOCYTOSIS SL; SCHISTOCYTES PRESENT
[2017-01-30 09:55] LABS: ALBUMIN SERUM 3.9 g/dL (3.5-5.0); BILIRUBIN,TOTAL 0.1 mg/dL (0.2-2.0); BUN/CREATININE RATIO 13.75; CALCIUM SERUM 8.8 mg/dL (8.4-10.2); CREATININE SERUM 0.8 mg/dL (0.6-1.4); GLOM FILT RATE Estimated 108.7 mL/min (>60); PROTEIN TOTAL SERUM 7.2 g/dL (6.0-8.3)
[2017-01-31 00:43] LABS: ARTERIAL BLOOD GAS CARBOXY HB 0.3 %sat (0.0-9.0); ARTERIAL BLOOD GAS HCO3 35.8 mmol/L; ARTERIAL BLOOD GAS MET HB 0.9 %sat (0.0-2.0)
[2017-01-31 00:45] LABS: ARTERIAL BLOOD GAS pH 7.191 (7.350-7.450)
[2017-01-31 00:46] LABS: ARTERIAL BLOOD GAS ALLEN TEST NORMAL; ARTERIAL BLOOD GAS ART SITE LEFT RADIAL; ARTERIAL BLOOD GAS DELIVERY BIPAP16/6; ARTERIAL BLOOD GAS PCO2 93.5 mmHg (35.0-45.0); ARTERIAL DRAW? YES
[2017-01-31 07:07] LABS: ARTERIAL BLD GAS O2 SATURATION 98.9 % (90.0-100.0); ARTERIAL BLOOD GAS CARBOXY HB 0.1 %sat (0.0-9.0); ARTERIAL BLOOD GAS HCO3 38.4 mmol/L; ARTERIAL BLOOD GAS MET HB 0.9 %sat (0.0-2.0); ARTERIAL BLOOD GAS pH 7.218 (7.350-7.450)
[2017-01-31 07:09] LABS: ARTERIAL BLOOD GAS ALLEN TEST NORMAL; ARTERIAL BLOOD GAS ART SITE LEFT RADIAL; ARTERIAL BLOOD GAS DELIVERY AVAPS; ARTERIAL BLOOD GAS PCO2 94.4 mmHg (35.0-45.0); ARTERIAL DRAW? YES
[2017-01-31 08:16] LABS: HEMATOCRIT 34.6 % (38.0-50.0); HEMOGLOBIN 11.1 gm/dL (13.0-16.0); MEAN CORPUSCULAR HEMOGLOBIN 28.9 PG (28-34); MEAN PLATELET VOLUME 9.8 FL (6.5-11.5); RED BLOOD COUNT 3.83 X10e (3.90-5.60); RED CELL DISTRIBUTION WIDTH 14.5 % (11.0-15.5); WHITE BLOOD COUNT 12.1 X10e3 (4.0-10.5)
[2017-01-31 08:21] LABS: MEAN CELL VOLUME 90.3 FL (83-96)
[2017-01-31 08:52] LABS: ALBUMIN SERUM 3.2 g/dL (3.5-5.0); BILIRUBIN,TOTAL 0.2 mg/dL (0.2-2.0); BUN/CREATININE RATIO 27.14; CALCIUM SERUM 8.3 mg/dL (8.4-10.2); CREATININE SERUM 0.7 mg/dL (0.6-1.4); GLOM FILT RATE Estimated 114.8 mL/min (>60)
[2017-01-31 08:57] LABS: POTASSIUM 5.6 mmol/L (3.5-5.1)
[2017-01-31 11:16] LABS: ARTERIAL BLD GAS O2 SATURATION 95.8 % (90.0-100.0); ARTERIAL BLOOD GAS CARBOXY HB 0.5 %sat (0.0-9.0); ARTERIAL BLOOD GAS HCO3 40.4 mmol/L; ARTERIAL BLOOD GAS MET HB 0.9 %sat (0.0-2.0); ARTERIAL BLOOD GAS PO2 93.1 mmHg (80.0-100); ARTERIAL BLOOD GAS pH 7.261 (7.350-7.450)
[2017-01-31 11:18] LABS: ARTERIAL BLOOD GAS ALLEN TEST NORMAL; ARTERIAL BLOOD GAS ART SITE RIGHT RADIAL; ARTERIAL BLOOD GAS PCO2 89.9 mmHg (35.0-45.0); ARTERIAL DRAW? YES
[2017-01-31 11:19] LABS: ARTERIAL BLOOD GAS DELIVERY BIPAP; ARTERIAL BLOOD GAS VENT MODE AVAPS
[2017-02-01 04:36] LABS: ARTERIAL BLOOD GAS CARBOXY HB 0.7 %sat (0.0-9.0); ARTERIAL BLOOD GAS HCO3 38.8 mmol/L; ARTERIAL BLOOD GAS MET HB 1.1 %sat (0.0-2.0); ARTERIAL BLOOD GAS pH 7.251 (7.350-7.450)
[2017-02-01 04:45] LABS: ARTERIAL BLOOD GAS ALLEN TEST NORMAL; ARTERIAL BLOOD GAS ART SITE RIGHT RADIAL; ARTERIAL BLOOD GAS PCO2 88.5 mmHg (35.0-45.0); ARTERIAL DRAW? YES
[2017-02-01 04:46] LABS: ARTERIAL BLOOD GAS VENT MODE AVAPS
[2017-02-01 06:19] LABS: ALBUMIN SERUM 4.8 g/dL (3.5-5.0); BILIRUBIN,TOTAL 0.8 mg/dL (0.2-2.0); BUN/CREATININE RATIO 27.14; CALCIUM SERUM 8.5 mg/dL (8.4-10.2); CREATININE SERUM 0.7 mg/dL (0.6-1.4); GLOM FILT RATE Estimated 114.8 mL/min (>60); PROTEIN TOTAL SERUM 6.9 g/dL (6.0-8.3)
[2017-02-01 06:56] LABS: BASOPHIL% 0.1 % (0-2.5); HEMATOCRIT 30.7 % (38.0-50.0); HEMOGLOBIN 9.9 gm/dL (13.0-16.0); LYMPHOCYTE# 0.2 X10e3 (1.0-3.5); LYMPHOCYTE% 1.3 % (17.0-45.0); MEAN CELL VOLUME 89.7 FL (83-96); MEAN CORPUSCULAR HEMOGLOBIN 28.9 PG (28-34); MEAN CORPUSCULAR HGB CONC 32.2 g/dL (30-36); MEAN PLATELET VOLUME 10.3 FL (6.5-11.5); MONOCYTE# 2.2 X10e3 (0-1.0); MONOCYTE% 14.6 % (3.0-12.0); NEUTROPHIL# 12.6 X10e3 (1.5-7.1); PLATELET COUNT 175 X10e3 (140-420); RED BLOOD COUNT 3.43 X10e (3.90-5.60); RED CELL DISTRIBUTION WIDTH 14.6 % (11.0-15.5)
[2017-02-01 06:57] LABS: DIFF IND YES
[2017-02-01 08:33] LABS: ANISOCYTOSIS SL; PLATELET ESTIMATE NORMAL (NORMAL)
[2017-02-01 09:31] LABS: ARTERIAL BLD GAS O2 SATURATION 92.2 % (90.0-100.0); ARTERIAL BLOOD GAS ALLEN TEST NORMAL; ARTERIAL BLOOD GAS ART SITE LEFT RADIAL; ARTERIAL BLOOD GAS CARBOXY HB 0.6 %sat (0.0-9.0); ARTERIAL BLOOD GAS DELIVERY VENT; ARTERIAL BLOOD GAS HCO3 38.3 mmol/L; ARTERIAL BLOOD GAS MET HB 1.1 %sat (0.0-2.0); ARTERIAL BLOOD GAS PCO2 90.4 mmHg (35.0-45.0); ARTERIAL BLOOD GAS VENT MODE AC; ARTERIAL BLOOD GAS pH 7.236 (7.350-7.450); ARTERIAL DRAW? YES
[2017-02-01 11:07] LABS: ARTERIAL BLD GAS O2 SATURATION 95.9 % (90.0-100.0); ARTERIAL BLOOD GAS CARBOXY HB 0.6 %sat (0.0-9.0); ARTERIAL BLOOD GAS HCO3 39.4 mmol/L; ARTERIAL BLOOD GAS MET HB 0.8 %sat (0.0-2.0); ARTERIAL BLOOD GAS PO2 86.9 mmHg (80.0-100)
[2017-02-01 11:08] LABS: ARTERIAL BLOOD GAS ALLEN TEST NORMAL; ARTERIAL BLOOD GAS ART SITE LEFT RADIAL; ARTERIAL BLOOD GAS DELIVERY VENT; ARTERIAL BLOOD GAS PCO2 76.5 mmHg (35.0-45.0); ARTERIAL BLOOD GAS VENT MODE AC; ARTERIAL DRAW? YES
[2017-02-02 04:44] LABS: ARTERIAL BLD GAS O2 SATURATION 94.4 % (90.0-100.0); ARTERIAL BLOOD GAS CARBOXY HB 0.3 %sat (0.0-9.0); ARTERIAL BLOOD GAS HCO3 41.3 mmol/L; ARTERIAL BLOOD GAS pH 7.418 (7.350-7.450)
[2017-02-02 04:47] LABS: ARTERIAL BLOOD GAS PCO2 64.1 mmHg (35.0-45.0); ARTERIAL BLOOD GAS PO2 60.9 mmHg (80.0-100); ARTERIAL DRAW? YES
[2017-02-02 04:48] LABS: ARTERIAL BLOOD GAS ALLEN TEST NORMAL; ARTERIAL BLOOD GAS ART SITE RIGHT RADIAL; ARTERIAL BLOOD GAS DELIVERY VENT; ARTERIAL BLOOD GAS VENT MODE AC
[2017-02-02 06:14] LABS: BASOPHIL% 0.1 % (0-2.5); DIFF IND NO; HEMATOCRIT 30.4 % (38.0-50.0); HEMOGLOBIN 9.7 gm/dL (13.0-16.0); LYMPHOCYTE# 0.3 X10e3 (1.0-3.5); MEAN CORPUSCULAR HEMOGLOBIN 28.6 PG (28-34); MEAN CORPUSCULAR HGB CONC 31.8 g/dL (30-36); MEAN PLATELET VOLUME 9.9 FL (6.5-11.5); MONOCYTE# 1.9 X10e3 (0-1.0); NEUTROPHIL# 10.6 X10e3 (1.5-7.1); NEUTROPHIL% 82.9 % (40-75); PLATELET COUNT 176 X10e3 (140-420); RED BLOOD COUNT 3.38 X10e (3.90-5.60); RED CELL DISTRIBUTION WIDTH 14.6 % (11.0-15.5); WHITE BLOOD COUNT 12.7 X10e3 (4.0-10.5)
[2017-02-02 06:28] LABS: ALBUMIN SERUM 4.1 g/dL (3.5-5.0); BILIRUBIN,TOTAL 0.2 mg/dL (0.2-2.0); BUN/CREATININE RATIO 26.25; CALCIUM SERUM 8.7 mg/dL (8.4-10.2); CREATININE SERUM 0.8 mg/dL (0.6-1.4); GLOM FILT RATE Estimated 108.7 mL/min (>60); POTASSIUM 4.3 mmol/L (3.5-5.1)
[2017-02-02 12:11] LABS: INR 2.8; PARTIAL THROMBOPLASTIN TIME 35.9 SECONDS (23.5-31.3); PROTHROMBIN TIME (PATIENT) 30.1 SECONDS (10.0-11.7)
[2017-02-03 04:43] LABS: ARTERIAL BLD GAS O2 SATURATION 96.9 % (90.0-100.0); ARTERIAL BLOOD GAS CARBOXY HB 0.4 %sat (0.0-9.0); ARTERIAL BLOOD GAS MET HB 1.2 %sat (0.0-2.0); ARTERIAL BLOOD GAS pH 7.417 (7.350-7.450)
[2017-02-03 04:52] LABS: ARTERIAL BLOOD GAS ALLEN TEST NORMAL; ARTERIAL BLOOD GAS ART SITE RIGHT RADIAL; ARTERIAL BLOOD GAS DELIVERY VENT; ARTERIAL BLOOD GAS VENT MODE AC; ARTERIAL DRAW? YES
[2017-02-03 06:08] LABS: HEMATOCRIT 26.1 % (38.0-50.0); HEMOGLOBIN 8.5 gm/dL (13.0-16.0); MEAN CELL VOLUME 90.1 FL (83-96); MEAN CORPUSCULAR HEMOGLOBIN 29.2 PG (28-34); MEAN CORPUSCULAR HGB CONC 32.4 g/dL (30-36); MEAN PLATELET VOLUME 9.9 FL (6.5-11.5); RED BLOOD COUNT 2.9 X10e (3.90-5.60); RED CELL DISTRIBUTION WIDTH 14.5 % (11.0-15.5)
[2017-02-03 06:29] LABS: INR 2.2; PROTHROMBIN TIME (PATIENT) 24.2 SECONDS (10.0-11.7)
[2017-02-03 06:34] LABS: BUN/CREATININE RATIO 26.66; CREATININE SERUM 0.9 mg/dL (0.6-1.4); GLOM FILT RATE Estimated 103.5 mL/min (>60); POTASSIUM 3.8 mmol/L (3.5-5.1)
[2017-02-04 04:10] LABS: BASOPHIL% 0.3 % (0-2.5); HEMATOCRIT 28.5 % (38.0-50.0); HEMOGLOBIN 9.1 gm/dL (13.0-16.0); LYMPHOCYTE# 0.4 X10e3 (1.0-3.5); LYMPHOCYTE% 2.6 % (17.0-45.0); MEAN CELL VOLUME 90.8 FL (83-96); MEAN CORPUSCULAR HEMOGLOBIN 29.1 PG (28-34); MEAN PLATELET VOLUME 9.8 FL (6.5-11.5); MONOCYTE# 1.4 X10e3 (0-1.0); MONOCYTE% 8.2 % (3.0-12.0); NEUTROPHIL# 15.1 X10e3 (1.5-7.1); NEUTROPHIL% 88.9 % (40-75); PLATELET COUNT 187 X10e3 (140-420); RED BLOOD COUNT 3.14 X10e (3.90-5.60); RED CELL DISTRIBUTION WIDTH 14.6 % (11.0-15.5)
[2017-02-04 04:11] LABS: DIFF IND YES
[2017-02-04 04:14] LABS: INR 1.9; PROTHROMBIN TIME (PATIENT) 20.5 SECONDS (10.0-11.7)
[2017-02-04 04:22] LABS: ARTERIAL BLD GAS O2 SATURATION 97.2 % (90.0-100.0); ARTERIAL BLOOD GAS CARBOXY HB 0.4 %sat (0.0-9.0); ARTERIAL BLOOD GAS HCO3 35.3 mmol/L; ARTERIAL BLOOD GAS MET HB 0.7 %sat (0.0-2.0); ARTERIAL BLOOD GAS pH 7.387 (7.350-7.450)
[2017-02-04 04:24] LABS: ARTERIAL BLOOD GAS ALLEN TEST NORMAL; ARTERIAL BLOOD GAS ART SITE LEFT RADIAL; ARTERIAL BLOOD GAS DELIVERY VENT; ARTERIAL BLOOD GAS PCO2 58.7 mmHg (35.0-45.0); ARTERIAL BLOOD GAS VENT MODE AC; ARTERIAL DRAW? YES
[2017-02-04 04:30] LABS: ALBUMIN SERUM 3.1 g/dL (3.5-5.0); BILIRUBIN,TOTAL 0.7 mg/dL (0.2-2.0); BUN/CREATININE RATIO 32.85; CREATININE SERUM 0.7 mg/dL (0.6-1.4); GLOM FILT RATE Estimated 114.8 mL/min (>60); PLATELET ESTIMATE NORMAL (NORMAL); POTASSIUM 4.4 mmol/L (3.5-5.1); PROTEIN TOTAL SERUM 5.1 g/dL (6.0-8.3)
[2017-02-04 04:35] LABS: OVALOCYTES PRESENT; TARGET CELLS SL
[2017-02-04 04:36] LABS: SCHISTOCYTES PRESENT
[2017-02-04 04:37] LABS: ANISOCYTOSIS SL; POIKILOCYTOSIS SL
[2017-02-05 05:27] LABS: BASOPHIL% 0.2 % (0-2.5); HEMATOCRIT 29.6 % (38.0-50.0); HEMOGLOBIN 9.6 gm/dL (13.0-16.0); LYMPHOCYTE# 0.5 X10e3 (1.0-3.5); LYMPHOCYTE% 2.1 % (17.0-45.0); MEAN CELL VOLUME 90.8 FL (83-96); MEAN CORPUSCULAR HEMOGLOBIN 29.4 PG (28-34); MEAN CORPUSCULAR HGB CONC 32.3 g/dL (30-36); MEAN PLATELET VOLUME 9.8 FL (6.5-11.5); MONOCYTE% 8.7 % (3.0-12.0); NEUTROPHIL# 20.6 X10e3 (1.5-7.1); PLATELET COUNT 210 X10e3 (140-420); RED BLOOD COUNT 3.26 X10e (3.90-5.60); RED CELL DISTRIBUTION WIDTH 14.8 % (11.0-15.5); WHITE BLOOD COUNT 23.2 X10e3 (4.0-10.5)
[2017-02-05 05:31] LABS: INR 1.3; PROTHROMBIN TIME (PATIENT) 14.5 SECONDS (10.0-11.7)
[2017-02-05 05:40] LABS: DIFF IND NO
[2017-02-05 06:38] LABS: BUN/CREATININE RATIO 46.25; CALCIUM SERUM 8.5 mg/dL (8.4-10.2); CREATININE SERUM 0.8 mg/dL (0.6-1.4); GLOM FILT RATE Estimated 108.7 mL/min (>60); POTASSIUM 4.4 mmol/L (3.5-5.1)
[2017-02-05 22:16] LABS: URINE APPEARANCE CLOUDY; URINE BILIRUBIN NEG (NEG); URINE BLOOD 3+ (NEG); URINE COLOR YELLOW; URINE GLUCOSE NEG (NEG); URINE KETONE TRACE (NEG); URINE LEUKOCYTE ESTERASE 1+ (NEG); URINE NITRATE NEG (NEG); URINE PROTEIN 2+ (NEG); URINE SPECIFIC GRAVITY 1.034 (1.003-1.035); URINE UROBILINOGEN 0.2 MG/DL (NEG)
[2017-02-05 22:19] LABS: URBCS1 AUWI INNUM /[HPF] (0-2); URINE BACTERIA AUWI NEG (NEGATIVE); URINE SQUAMOUS EPITHELIAL CELL OCC /[HPF]
[2017-02-05 22:34] LABS: U HYALINE CASTS AUWI 0-2 /[LPF]; URINE GRANULAR CAST 0-2 /[HPF]
[2017-02-06 03:59] LABS: ARTERIAL BLD GAS O2 SATURATION 91.2 % (90.0-100.0); ARTERIAL BLOOD GAS CARBOXY HB 0.6 %sat (0.0-9.0); ARTERIAL BLOOD GAS HCO3 35.9 mmol/L; ARTERIAL BLOOD GAS MET HB 0.5 %sat (0.0-2.0); ARTERIAL BLOOD GAS PCO2 63.8 mmHg (35.0-45.0); ARTERIAL BLOOD GAS pH 7.359 (7.350-7.450)
[2017-02-06 04:00] LABS: ARTERIAL BLOOD GAS ALLEN TEST NORMAL; ARTERIAL BLOOD GAS ART SITE RIGHT RADIAL; ARTERIAL BLOOD GAS DELIVERY VENT; ARTERIAL BLOOD GAS PO2 65.3 mmHg (80.0-100); ARTERIAL BLOOD GAS VENT MODE AC; ARTERIAL DRAW? YES
[2017-02-06 05:45] LABS: BASOPHIL# 0.1 X10e3 (0-0.3); BASOPHIL% 0.2 % (0-2.5); HEMOGLOBIN 8.9 gm/dL (13.0-16.0); INR 1.3; LYMPHOCYTE# 0.4 X10e3 (1.0-3.5); LYMPHOCYTE% 1.2 % (17.0-45.0); MEAN CELL VOLUME 89.9 FL (83-96); MEAN CORPUSCULAR HEMOGLOBIN 28.4 PG (28-34); MEAN CORPUSCULAR HGB CONC 31.6 g/dL (30-36); MEAN PLATELET VOLUME 9.3 FL (6.5-11.5); MONOCYTE# 2.7 X10e3 (0-1.0); MONOCYTE% 7.4 % (3.0-12.0); NEUTROPHIL# 33.3 X10e3 (1.5-7.1); NEUTROPHIL% 91.2 % (40-75); PLATELET COUNT 221 X10e3 (140-420); RED BLOOD COUNT 3.11 X10e (3.90-5.60); RED CELL DISTRIBUTION WIDTH 14.7 % (11.0-15.5)
[2017-02-06 06:09] LABS: DIFF IND YES; WHITE BLOOD COUNT 36.6 X10e3 (4.0-10.5)
[2017-02-06 06:34] LABS: BLOOD UREA NITROGEN 41 mg/dL (9-23); BUN/CREATININE RATIO 51.25; CALCIUM SERUM 8.3 mg/dL (8.4-10.2); CARBON DIOXIDE 34 mmol/L (22-31); CHLORIDE 107 mmol/L (100-111); CREATININE SERUM 0.8 mg/dL (0.6-1.4); GLOM FILT RATE Estimated 108.7 mL/min (>60); GLUCOSE FASTING 137 mg/dL (70-110); POTASSIUM 4.9 mmol/L (3.5-5.1); SODIUM 145 mmol/L (135-145)
[2017-02-06 06:46] LABS: ANISOCYTOSIS SL; PLATELET ESTIMATE NORMAL (NORMAL); POIKILOCYTOSIS SL
[2017-02-06 07:13] LABS: PROCALCITONIN <0.05 NG/ML
[2017-02-07 04:28] LABS: ARTERIAL BLD GAS O2 SATURATION 90.2 % (90.0-100.0); ARTERIAL BLOOD GAS CARBOXY HB 0.8 %sat (0.0-9.0); ARTERIAL BLOOD GAS HCO3 39.8 mmol/L; ARTERIAL BLOOD GAS pH 7.351 (7.350-7.450)
[2017-02-07 04:35] LABS: ARTERIAL BLOOD GAS PCO2 72.1 mmHg (35.0-45.0); ARTERIAL BLOOD GAS PO2 63.7 mmHg (80.0-100)
[2017-02-07 04:36] LABS: ARTERIAL BLOOD GAS ALLEN TEST NORMAL; ARTERIAL BLOOD GAS ART SITE LEFT RADIAL; ARTERIAL BLOOD GAS DELIVERY VENT; ARTERIAL BLOOD GAS VENT MODE AC; ARTERIAL DRAW? YES
[2017-02-07 05:21] LABS: BASOPHIL# 0.1 X10e3 (0-0.3); BASOPHIL% 0.2 % (0-2.5); HEMATOCRIT 27.2 % (38.0-50.0); HEMOGLOBIN 8.5 gm/dL (13.0-16.0); LYMPHOCYTE# 0.8 X10e3 (1.0-3.5); LYMPHOCYTE% 1.8 % (17.0-45.0); MEAN CELL VOLUME 90.8 FL (83-96); MEAN CORPUSCULAR HEMOGLOBIN 28.5 PG (28-34); MEAN CORPUSCULAR HGB CONC 31.4 g/dL (30-36); MONOCYTE% 9.5 % (3.0-12.0); NEUTROPHIL# 37.2 X10e3 (1.5-7.1); NEUTROPHIL% 88.5 % (40-75); PLATELET COUNT 222 X10e3 (140-420); RED BLOOD COUNT 2.99 X10e (3.90-5.60); RED CELL DISTRIBUTION WIDTH 15.2 % (11.0-15.5)
[2017-02-07 05:23] LABS: INR 1.1; PROTHROMBIN TIME (PATIENT) 11.7 SECONDS (10.0-11.7)
[2017-02-07 05:26] LABS: DIFF IND NO
[2017-02-07 06:52] LABS: BUN/CREATININE RATIO 51.25; CALCIUM SERUM 8.2 mg/dL (8.4-10.2); CREATININE SERUM 0.8 mg/dL (0.6-1.4); GLOM FILT RATE Estimated 108.7 mL/min (>60); POTASSIUM 4.7 mmol/L (3.5-5.1)
[2017-02-08 05:00] LABS: ARTERIAL BLD GAS O2 SATURATION 95.1 % (90.0-100.0); ARTERIAL BLOOD GAS ALLEN TEST NORMAL; ARTERIAL BLOOD GAS ART SITE LEFT RADIAL; ARTERIAL BLOOD GAS DELIVERY VENT; ARTERIAL BLOOD GAS HCO3 39.5 mmol/L; ARTERIAL BLOOD GAS MET HB 1.1 %sat (0.0-2.0); ARTERIAL BLOOD GAS PCO2 67.2 mmHg (35.0-45.0); ARTERIAL BLOOD GAS PO2 84.4 mmHg (80.0-100); ARTERIAL BLOOD GAS pH 7.377 (7.350-7.450); ARTERIAL DRAW? YES
[2017-02-08 05:01] LABS: ARTERIAL BLOOD GAS VENT MODE SIMV
[2017-02-08 05:33] LABS: HEMATOCRIT 23.3 % (38.0-50.0); HEMOGLOBIN 7.2 gm/dL (13.0-16.0); MEAN CELL VOLUME 91.6 FL (83-96); MEAN CORPUSCULAR HEMOGLOBIN 28.3 PG (28-34); MEAN CORPUSCULAR HGB CONC 30.9 g/dL (30-36); MEAN PLATELET VOLUME 9.4 FL (6.5-11.5); RED BLOOD COUNT 2.54 X10e (3.90-5.60); RED CELL DISTRIBUTION WIDTH 14.8 % (11.0-15.5); WHITE BLOOD COUNT 39.4 X10e3 (4.0-10.5)
[2017-02-08 06:19] LABS: INR 1.2; PROTHROMBIN TIME (PATIENT) 12.6 SECONDS (10.0-11.7)
[2017-02-08 08:22] LABS: BUN/CREATININE RATIO 41.25; CALCIUM SERUM 7.6 mg/dL (8.4-10.2); CREATININE SERUM 0.8 mg/dL (0.6-1.4); GLOM FILT RATE Estimated 108.7 mL/min (>60); POTASSIUM 4.9 mmol/L (3.5-5.1)
[2017-02-08 14:38] LABS: D DIMER 321 NG/ML (45-500)
[2017-02-08 15:00] LABS: HEMATOCRIT 26.5 % (38.0-50.0); HEMOGLOBIN 8.3 gm/dL (13.0-16.0)
[2017-02-08 15:20] LABS: FIBRINOGEN 294 MG/DL (200-400)
[2017-02-08 15:55] LABS: ALBUMIN SERUM 3.1 g/dL (3.5-5.0); BILIRUBIN,TOTAL 0.8 mg/dL (0.2-2.0); BUN/CREATININE RATIO 44.28; CREATININE SERUM 0.7 mg/dL (0.6-1.4); GLOM FILT RATE Estimated 114.8 mL/min (>60); POTASSIUM 4.6 mmol/L (3.5-5.1); PROTEIN TOTAL SERUM 5.4 g/dL (6.0-8.3)
[2017-02-08 16:12] LABS: FOLATE (FOLIC ACID) >23.2 ng/mL (>5.8)
[2017-02-09 04:20] LABS: ARTERIAL BLD GAS O2 SATURATION 95.1 % (90.0-100.0); ARTERIAL BLOOD GAS CARBOXY HB 1.1 %sat (0.0-9.0); ARTERIAL BLOOD GAS HCO3 38.4 mmol/L; ARTERIAL BLOOD GAS MET HB 0.9 %sat (0.0-2.0); ARTERIAL BLOOD GAS pH 7.444 (7.350-7.450)
[2017-02-09 04:22] LABS: ARTERIAL BLOOD GAS ALLEN TEST NORMAL; ARTERIAL BLOOD GAS ART SITE LEFT RADIAL; ARTERIAL BLOOD GAS DELIVERY VENT; ARTERIAL BLOOD GAS PCO2 56.1 mmHg (35.0-45.0); ARTERIAL BLOOD GAS PO2 77.5 mmHg (80.0-100); ARTERIAL BLOOD GAS VENT MODE SIMV; ARTERIAL DRAW? YES
[2017-02-09 05:49] LABS: INR 1.1; PROTHROMBIN TIME (PATIENT) 12.1 SECONDS (10.0-11.7)
[2017-02-09 06:22] LABS: BASOPHIL# 0.1 X10e3 (0-0.3); BASOPHIL% 0.2 % (0-2.5); HEMATOCRIT 24.4 % (38.0-50.0); HEMOGLOBIN 7.6 gm/dL (13.0-16.0); LYMPHOCYTE# 0.7 X10e3 (1.0-3.5); LYMPHOCYTE% 1.7 % (17.0-45.0); MEAN CELL VOLUME 90.9 FL (83-96); MEAN CORPUSCULAR HEMOGLOBIN 28.4 PG (28-34); MEAN CORPUSCULAR HGB CONC 31.2 g/dL (30-36); MEAN PLATELET VOLUME 9.9 FL (6.5-11.5); MONOCYTE# 5.8 X10e3 (0-1.0); MONOCYTE% 13.2 % (3.0-12.0); NEUTROPHIL# 37.2 X10e3 (1.5-7.1); NEUTROPHIL% 84.9 % (40-75); PLATELET COUNT 221 X10e3 (140-420); RED BLOOD COUNT 2.69 X10e (3.90-5.60); RED CELL DISTRIBUTION WIDTH 14.4 % (11.0-15.5); WHITE BLOOD COUNT 43.8 X10e3 (4.0-10.5)
[2017-02-09 06:24] LABS: DIFF IND NO
[2017-02-09 06:34] LABS: BUN/CREATININE RATIO 53.33; CREATININE SERUM 0.6 mg/dL (0.6-1.4); GLOM FILT RATE Estimated 122.3 mL/min (>60); POTASSIUM 4.6 mmol/L (3.5-5.1)
[2017-02-09 13:05] LABS: URINE APPEARANCE CLEAR; URINE BILIRUBIN NEG (NEG); URINE BLOOD 4+ (NEG); URINE COLOR YELLOW; URINE GLUCOSE 100 MG/DL (NORM); URINE KETONE NEG (NEG); URINE LEUKOCYTE ESTERASE NEG (NEG); URINE NITRATE NEG (NEG); URINE PROTEIN 1+ (NEG); URINE UROBILINOGEN NORM (NORM)
[2017-02-10 03:56] LABS: BASOPHIL% 0.1 % (0-2.5); HEMATOCRIT 22.7 % (38.0-50.0); HEMOGLOBIN 7.2 gm/dL (13.0-16.0); LYMPHOCYTE# 0.8 X10e3 (1.0-3.5); MEAN CELL VOLUME 89.6 FL (83-96); MEAN CORPUSCULAR HEMOGLOBIN 28.5 PG (28-34); MEAN CORPUSCULAR HGB CONC 31.8 g/dL (30-36); MEAN PLATELET VOLUME 9.4 FL (6.5-11.5); MONOCYTE# 5.5 X10e3 (0-1.0); MONOCYTE% 14.7 % (3.0-12.0); NEUTROPHIL# 31.3 X10e3 (1.5-7.1); NEUTROPHIL% 83.2 % (40-75); PLATELET COUNT 211 X10e3 (140-420); RED BLOOD COUNT 2.53 X10e (3.90-5.60); RED CELL DISTRIBUTION WIDTH 14.8 % (11.0-15.5); WHITE BLOOD COUNT 37.6 X10e3 (4.0-10.5)
[2017-02-10 03:57] LABS: DIFF IND YES
[2017-02-10 04:35] LABS: ARTERIAL BLD GAS O2 SATURATION 96.8 % (90.0-100.0); ARTERIAL BLOOD GAS CARBOXY HB 0.7 %sat (0.0-9.0); ARTERIAL BLOOD GAS HCO3 39.1 mmol/L; ARTERIAL BLOOD GAS MET HB 1.3 %sat (0.0-2.0); ARTERIAL BLOOD GAS PO2 85.2 mmHg (80.0-100); ARTERIAL BLOOD GAS pH 7.493 (7.350-7.450)
[2017-02-10 04:36] LABS: INR 1.1; PROTHROMBIN TIME (PATIENT) 12.5 SECONDS (10.0-11.7)
[2017-02-10 04:42] LABS: HYPOCHROMIA MOD; PLATELET ESTIMATE DECREASED (NORMAL)
[2017-02-10 04:43] LABS: ARTERIAL BLOOD GAS ALLEN TEST NORMAL; ARTERIAL BLOOD GAS ART SITE LEFT RADIAL; ARTERIAL BLOOD GAS DELIVERY VENT; ARTERIAL BLOOD GAS PCO2 50.9 mmHg (35.0-45.0); ARTERIAL BLOOD GAS VENT MODE SIMV; ARTERIAL DRAW? YES
[2017-02-10 15:53] LABS: ARTERIAL BLD GAS O2 SATURATION 95.4 % (90.0-100.0); ARTERIAL BLOOD GAS CARBOXY HB 0.7 %sat (0.0-9.0); ARTERIAL BLOOD GAS HCO3 39.8 mmol/L; ARTERIAL BLOOD GAS MET HB 0.9 %sat (0.0-2.0); ARTERIAL BLOOD GAS PCO2 53.3 mmHg (35.0-45.0); ARTERIAL BLOOD GAS PO2 81.8 mmHg (80.0-100); ARTERIAL BLOOD GAS pH 7.481 (7.350-7.450)
[2017-02-10 15:54] LABS: ARTERIAL BLOOD GAS ALLEN TEST NORMAL; ARTERIAL BLOOD GAS ART SITE LEFT RADIAL; ARTERIAL BLOOD GAS DELIVERY VENT; ARTERIAL BLOOD GAS VENT MODE SIMV; ARTERIAL DRAW? YES
[2017-02-11 04:01] LABS: ARTERIAL BLD GAS O2 SATURATION 96.9 % (90.0-100.0); ARTERIAL BLOOD GAS CARBOXY HB 0.8 %sat (0.0-9.0); ARTERIAL BLOOD GAS HCO3 39.1 mmol/L; ARTERIAL BLOOD GAS MET HB 0.8 %sat (0.0-2.0); ARTERIAL BLOOD GAS pH 7.498 (7.350-7.450)
[2017-02-11 04:02] LABS: ARTERIAL BLOOD GAS ALLEN TEST NORMAL; ARTERIAL BLOOD GAS ART SITE RIGHT RADIAL; ARTERIAL BLOOD GAS DELIVERY VENT; ARTERIAL BLOOD GAS PCO2 50.4 mmHg (35.0-45.0); ARTERIAL BLOOD GAS VENT MODE SIMV; ARTERIAL DRAW? YES
[2017-02-11 05:36] LABS: BASOPHIL% 0.1 % (0-2.5); HEMATOCRIT 26.1 % (38.0-50.0); HEMOGLOBIN 8.4 gm/dL (13.0-16.0); LYMPHOCYTE# 0.8 X10e3 (1.0-3.5); LYMPHOCYTE% 1.9 % (17.0-45.0); MEAN CELL VOLUME 88.8 FL (83-96); MEAN CORPUSCULAR HEMOGLOBIN 28.5 PG (28-34); MEAN CORPUSCULAR HGB CONC 32.1 g/dL (30-36); MONOCYTE# 5.6 X10e3 (0-1.0); NEUTROPHIL# 33.8 X10e3 (1.5-7.1); PLATELET COUNT 206 X10e3 (140-420); RED BLOOD COUNT 2.94 X10e (3.90-5.60); RED CELL DISTRIBUTION WIDTH 15.4 % (11.0-15.5); WHITE BLOOD COUNT 40.2 X10e3 (4.0-10.5)
[2017-02-11 05:37] LABS: DIFF IND NO
[2017-02-11 05:39] LABS: INR 1.1
[2017-02-11 06:23] LABS: BUN/CREATININE RATIO 36.66; CALCIUM SERUM 7.5 mg/dL (8.4-10.2); CREATININE SERUM 0.6 mg/dL (0.6-1.4); GLOM FILT RATE Estimated 122.3 mL/min (>60); POTASSIUM 4.5 mmol/L (3.5-5.1)
[2017-02-12 04:09] LABS: BASOPHIL# 0.1 X10e3 (0-0.3); BASOPHIL% 0.2 % (0-2.5); HEMATOCRIT 22.2 % (38.0-50.0); LYMPHOCYTE# 0.5 X10e3 (1.0-3.5); LYMPHOCYTE% 1.5 % (17.0-45.0); MEAN CELL VOLUME 89.9 FL (83-96); MEAN CORPUSCULAR HEMOGLOBIN 28.2 PG (28-34); MEAN CORPUSCULAR HGB CONC 31.3 g/dL (30-36); MEAN PLATELET VOLUME 9.5 FL (6.5-11.5); MONOCYTE# 4.2 X10e3 (0-1.0); MONOCYTE% 12.6 % (3.0-12.0); NEUTROPHIL# 28.7 X10e3 (1.5-7.1); NEUTROPHIL% 85.7 % (40-75); PLATELET COUNT 190 X10e3 (140-420); RED BLOOD COUNT 2.46 X10e (3.90-5.60); RED CELL DISTRIBUTION WIDTH 15.4 % (11.0-15.5); WHITE BLOOD COUNT 33.5 X10e3 (4.0-10.5)
[2017-02-12 04:21] LABS: DIFF IND YES; HEMOGLOBIN 6.9 gm/dL (13.0-16.0); INR 1.1; PROTHROMBIN TIME (PATIENT) 11.7 SECONDS (10.0-11.7)
[2017-02-12 04:27] LABS: ANISOCYTOSIS SL; NUCLEATED RED BLOOD CELL 3 /100 (0); PLATELET ESTIMATE DECREASED (NORMAL)
[2017-02-12 04:28] LABS: HOWELL-JOLLY BODIES PRESENT; HYPOCHROMIA SL; POLYCHROMASIA SL; SMUDGE CELLS 3 /100
[2017-02-12 04:29] LABS: CALCIUM SERUM 7.8 mg/dL (8.4-10.2); CREATININE SERUM 0.7 mg/dL (0.6-1.4); GLOM FILT RATE Estimated 114.8 mL/min (>60); POTASSIUM 4.7 mmol/L (3.5-5.1)
[2017-02-13 04:58] LABS: ARTERIAL BLD GAS O2 SATURATION 96.1 % (90.0-100.0); ARTERIAL BLOOD GAS CARBOXY HB 0.9 %sat (0.0-9.0); ARTERIAL BLOOD GAS HCO3 33.6 mmol/L; ARTERIAL BLOOD GAS MET HB 0.8 %sat (0.0-2.0); ARTERIAL BLOOD GAS pH 7.386 (7.350-7.450)
[2017-02-13 05:04] LABS: ARTERIAL BLOOD GAS PCO2 56.1 mmHg (35.0-45.0)
[2017-02-13 05:05] LABS: ARTERIAL BLOOD GAS ALLEN TEST NORMAL; ARTERIAL BLOOD GAS ART SITE RIGHT RADIAL; ARTERIAL BLOOD GAS DELIVERY VENT; ARTERIAL BLOOD GAS VENT MODE SIMV; ARTERIAL DRAW? YES
[2017-02-13 05:31] LABS: PROTHROMBIN TIME (PATIENT) 11.2 SECONDS (10.0-11.7)
[2017-02-13 05:40] LABS: BASOPHIL# 0.1 X10e3 (0-0.3); BASOPHIL% 0.2 % (0-2.5); HEMATOCRIT 29.9 % (38.0-50.0); LYMPHOCYTE# 0.4 X10e3 (1.0-3.5); LYMPHOCYTE% 1.3 % (17.0-45.0); MEAN CELL VOLUME 89.9 FL (83-96); MEAN CORPUSCULAR HGB CONC 32.2 g/dL (30-36); MEAN PLATELET VOLUME 9.7 FL (6.5-11.5); MONOCYTE# 3.1 X10e3 (0-1.0); MONOCYTE% 10.4 % (3.0-12.0); NEUTROPHIL# 26.2 X10e3 (1.5-7.1); NEUTROPHIL% 88.1 % (40-75); PLATELET COUNT 177 X10e3 (140-420); RED BLOOD COUNT 3.33 X10e (3.90-5.60); RED CELL DISTRIBUTION WIDTH 15.6 % (11.0-15.5); WHITE BLOOD COUNT 29.7 X10e3 (4.0-10.5)
[2017-02-13 05:43] LABS: DIFF IND NO; HEMOGLOBIN 9.6 gm/dL (13.0-16.0)
[2017-02-13 05:55] LABS: BUN/CREATININE RATIO 31.42; CALCIUM SERUM 8.2 mg/dL (8.4-10.2); CREATININE SERUM 0.7 mg/dL (0.6-1.4); GLOM FILT RATE Estimated 114.8 mL/min (>60); POTASSIUM 3.7 mmol/L (3.5-5.1)
[2017-02-13 18:02] LABS: ARTERIAL BLD GAS O2 SATURATION 95.5 % (90.0-100.0); ARTERIAL BLOOD GAS CARBOXY HB 0.8 %sat (0.0-9.0); ARTERIAL BLOOD GAS HCO3 34.7 mmol/L; ARTERIAL BLOOD GAS MET HB 0.7 %sat (0.0-2.0); ARTERIAL BLOOD GAS PO2 88.3 mmHg (80.0-100); ARTERIAL BLOOD GAS pH 7.373 (7.350-7.450)
[2017-02-13 18:03] LABS: ARTERIAL BLOOD GAS ALLEN TEST NORMAL; ARTERIAL BLOOD GAS ART SITE RIGHT RADIAL; ARTERIAL BLOOD GAS DELIVERY VENT; ARTERIAL BLOOD GAS PCO2 59.7 mmHg (35.0-45.0); ARTERIAL BLOOD GAS VENT MODE SIMV; ARTERIAL DRAW? YES
[2017-02-14 05:22] LABS: BASOPHIL# 0.1 X10e3 (0-0.3); BASOPHIL% 0.4 % (0-2.5); HEMATOCRIT 28.4 % (38.0-50.0); HEMOGLOBIN 9.1 gm/dL (13.0-16.0); LYMPHOCYTE# 0.3 X10e3 (1.0-3.5); LYMPHOCYTE% 1.1 % (17.0-45.0); MEAN CELL VOLUME 91.3 FL (83-96); MEAN CORPUSCULAR HEMOGLOBIN 29.1 PG (28-34); MEAN CORPUSCULAR HGB CONC 31.9 g/dL (30-36); MEAN PLATELET VOLUME 9.6 FL (6.5-11.5); MONOCYTE# 1.8 X10e3 (0-1.0); MONOCYTE% 6.5 % (3.0-12.0); NEUTROPHIL# 25.5 X10e3 (1.5-7.1); PLATELET COUNT 177 X10e3 (140-420); RED BLOOD COUNT 3.11 X10e (3.90-5.60); RED CELL DISTRIBUTION WIDTH 15.7 % (11.0-15.5); WHITE BLOOD COUNT 27.7 X10e3 (4.0-10.5)
[2017-02-14 05:29] LABS: DIFF IND NO
[2017-02-14 06:06] LABS: PROTHROMBIN TIME (PATIENT) 11.3 SECONDS (10.0-11.7)
[2017-02-14 07:26] LABS: BUN/CREATININE RATIO 41.66; CALCIUM SERUM 8.4 mg/dL (8.4-10.2); CREATININE SERUM 0.6 mg/dL (0.6-1.4); GLOM FILT RATE Estimated 122.3 mL/min (>60); POTASSIUM 4.3 mmol/L (3.5-5.1)
[2017-02-16 04:41] LABS: BASOPHIL% 0.1 % (0-2.5); EOSINOPHIL# 0.1 X10e3 (0-0.7); EOSINOPHIL% 0.2 % (0.0-7.0); HEMATOCRIT 29.7 % (38.0-50.0); HEMOGLOBIN 9.5 gm/dL (13.0-16.0); LYMPHOCYTE# 0.5 X10e3 (1.0-3.5); LYMPHOCYTE% 2.6 % (17.0-45.0); MEAN CELL VOLUME 91.9 FL (83-96); MEAN CORPUSCULAR HEMOGLOBIN 29.5 PG (28-34); MEAN CORPUSCULAR HGB CONC 32.1 g/dL (30-36); MEAN PLATELET VOLUME 8.6 FL (6.5-11.5); MONOCYTE# 1.3 X10e3 (0-1.0); MONOCYTE% 6.3 % (3.0-12.0); NEUTROPHIL# 18.9 X10e3 (1.5-7.1); NEUTROPHIL% 90.8 % (40-75); PLATELET COUNT 205 X10e3 (140-420); RED BLOOD COUNT 3.23 X10e (3.90-5.60); RED CELL DISTRIBUTION WIDTH 16.1 % (11.0-15.5); WHITE BLOOD COUNT 20.8 X10e3 (4.0-10.5)
[2017-02-16 04:42] LABS: DIFF IND YES
[2017-02-16 04:52] LABS: INR 1.1; PROTHROMBIN TIME (PATIENT) 11.4 SECONDS (10.0-11.7)
[2017-02-16 05:00] LABS: CALCIUM SERUM 8.1 mg/dL (8.4-10.2); CREATININE SERUM 0.5 mg/dL (0.6-1.4); GLOM FILT RATE Estimated 131.9 mL/min (>60); POTASSIUM 3.7 mmol/L (3.5-5.1)
[2017-02-16 05:09] LABS: ANISOCYTOSIS MOD; PLATELET ESTIMATE NORMAL (NORMAL)
[2017-02-17 08:58] LABS: INR 1.3; PROTHROMBIN TIME (PATIENT) 13.7 SECONDS (10.0-11.7)
[2017-02-17 09:10] LABS: BUN/CREATININE RATIO 25.71; CALCIUM SERUM 8.3 mg/dL (8.4-10.2); CREATININE SERUM 0.7 mg/dL (0.6-1.4); GLOM FILT RATE Estimated 114.8 mL/min (>60); POTASSIUM 3.9 mmol/L (3.5-5.1)
[2017-02-18 08:32] LABS: HEMATOCRIT 29.4 % (38.0-50.0); HEMOGLOBIN 9.5 gm/dL (13.0-16.0); MEAN CELL VOLUME 91.3 FL (83-96); MEAN CORPUSCULAR HEMOGLOBIN 29.3 PG (28-34); MEAN CORPUSCULAR HGB CONC 32.1 g/dL (30-36); MEAN PLATELET VOLUME 9.4 FL (6.5-11.5); RED BLOOD COUNT 3.22 X10e (3.90-5.60); WHITE BLOOD COUNT 19.6 X10e3 (4.0-10.5)
[2017-02-19 18:43] LABS: BUN/CREATININE RATIO 34.28; CALCIUM SERUM 8.2 mg/dL (8.4-10.2); CREATININE SERUM 0.7 mg/dL (0.6-1.4); GLOM FILT RATE Estimated 114.8 mL/min (>60); MAGNESIUM 2.1 mg/dL (1.6-3.0); POTASSIUM 4.1 mmol/L (3.5-5.1)
[2017-02-19 22:31] LABS: PROTHROMBIN TIME (PATIENT) 22.1 SECONDS (10.0-11.7)
[2017-02-20 07:09] LABS: PROTHROMBIN TIME (PATIENT) 21.6 SECONDS (10.0-11.7)
== END 2017-02-20 22:20 | DRG 166 ==
LOC: CED 20:33 → CEDOF 23:50 → C5B 23:50 → CICCU3 23:50 → CED 01-29 00:11 → CEDOF 01-29 00:11 → C5B 01-29 01:35 → CEDOF 01-29 01:35 → CICCU3 01-31 00:56 → C5C 02-16 09:44
PROVIDERS: Emergency Medicine; Internal Medicine Cardiovascular Disease; Internal Medicine Pulmonary Disease; Nurse Practitioner; Nurse Practitioner Family
PROC: 5A1955Z Respiratory Ventilation, Greater than 96 Consecutive Hours (ICD-10-PCS; 2017-02-01)
PROC: 0BH17EZ Insertion of Endotracheal Airway into Trachea, Via Natural or Artificial Opening (ICD-10-PCS; 2017-02-01)
PROC: 30233J1 Transfusion of Nonautologous Serum Albumin into Peripheral Vein, Percutaneous Approach (ICD-10-PCS; principal; 2017-02-10)
PROC: 30233N1 Transfusion of Nonautologous Red Blood Cells into Peripheral Vein, Percutaneous Approach (ICD-10-PCS; 2017-02-10)
PROC: 0BBC8ZX Excision of Right Upper Lung Lobe, Via Natural or Artificial Opening Endoscopic, Diagnostic (ICD-10-PCS; 2017-02-12)
PROC: 0BBD8ZX Excision of Right Middle Lung Lobe, Via Natural or Artificial Opening Endoscopic, Diagnostic (ICD-10-PCS; 2017-02-12)
PROC: 0BC18ZZ Extirpation of Matter from Trachea, Via Natural or Artificial Opening Endoscopic (ICD-10-PCS; 2017-02-12)
PROC: 0BC38ZZ Extirpation of Matter from Right Main Bronchus, Via Natural or Artificial Opening Endoscopic (ICD-10-PCS; 2017-02-12)
PROC: 0BBF8ZX Excision of Right Lower Lung Lobe, Via Natural or Artificial Opening Endoscopic, Diagnostic (ICD-10-PCS; 2017-02-12 09:00)
PROC: 05H433Z Insertion of Infusion Device into Left Innominate Vein, Percutaneous Approach (ICD-10-PCS; 2017-02-18)
PROC: B54NZZA Ultrasonography of Left Upper Extremity Veins, Guidance (ICD-10-PCS; 2017-02-18)
PROC: 0BJ08ZZ Inspection of Tracheobronchial Tree, Via Natural or Artificial Opening Endoscopic (ICD-10-PCS; 2017-02-20)
DX: J96.21 Acute and chronic respiratory failure with hypoxia (principal); J18.9 Pneumonia, unspecified organism; A41.9 Sepsis, unspecified organism; T17.590A Other foreign object in bronchus causing asphyxiation, initial encounter; T17.490A Other foreign object in trachea causing asphyxiation, initial encounter; I48.0 Paroxysmal atrial fibrillation; J44.9 Chronic obstructive pulmonary disease, unspecified; J44.0 Chronic obstructive pulmonary disease with (acute) lower respiratory infection; J44.1 Chronic obstructive pulmonary disease with (acute) exacerbation; K56.7 Ileus, unspecified; D62 Acute posthemorrhagic anemia; J96.22 Acute and chronic respiratory failure with hypercapnia; I10 Essential (primary) hypertension; Z85.46 Personal history of malignant neoplasm of prostate; R63.0 Anorexia; F41.9 Anxiety disorder, unspecified; R13.11 Dysphagia, oral phase
CPT/HCPCS: 36415; 36430; 36600; 70450; 71010; 71250; 71260; 74000; 74176; 74177; 74230; 80048; 80053; 80076; 81003; 82274; 82308; 82553; 82607; 82746; 82803; 82947; 83010; 83540; 83605; 83615; 83735; 84100; 84484; 85014; 85018; 85025; 85027; 85044; 85379; 85384; 85610; 85730; 86850; 86880; 86900; 86901; 86923; 87040; 87070; 87086; 87102; 87106; 87116; 87205; 87206; 87449; 87633; 87899; 88108; 88305; 88312; 89190; 92526; 92610; 92611; 93005; 94002; 94003; 94640; 94644; 94660; 94664; 94667; 94668; 94760; 94761; 96374; 97110; 97116; 97163; 97167; 97530; 97535; 99291; G0238; G8978-GP; G8979-GP; G8987-GO; G8988-GO; G8996-GN; G8997-GN; G8998-GN; J0171; J0456; J0692; J0696; J1120; J1630; J1650; J1815; J1940; J2250; J2270; J2920; J2930; J3370; J3490; P9016; P9047; Q9967